=== PATIENT | female | born 1945 | race Caucasian/White ===

== ENCOUNTER 2017-01-31 11:45 | Outpatient (CLI) | payer MEDICARE, BC ==
[~2017-01-31 11:45] MED LIST: SODIUM CHLORIDE FLUSH 0.9% 10 ML SYRINGE IVP ONE
--- NOTE | 2017-02-03 14:00 | Mammography Report ---
DIGITAL SCREENING MAMMOGRAM: 01/31/2017 CLINICAL INDICATION: A 71-year-old, for screening. COMPARISON: 01/2014, 01/2013, 09/2011, 06/2010, 10/2009. TECHNIQUE: Routine CC and MLO projections were obtained of the breasts. FINDINGS: Scattered fibroglandular tissue is present within the breasts. There are no dominant elda s, suspicious microcalcifications, or secondary signs of malignancy. In comparison to the previous st udies, there are no significant changes. ASSESSMENT: NO MAMMOGRAPHIC EVIDENCE OF MALIGNANCY. NO SIGNIFICANT INTERVAL CHANGES. RECOMMENDATION: Screening mammography is recommended annually. BIRADS category 1 - negative. STANDARD QUALIFYING STATEMENTS 1. This examination was reviewed with the aid of Computed-Aided Detection (CAD). 2. A negative or benign imaging report should not delay biopsy if clinically suspicious findings are present. Consider surgical consultation if warranted. More than 5% of cancers are not identified by i maging. 3. Dense breasts may obscure an underlying neoplasm. JOB #: [id number] EXT JOB #:[id number]
== END 2017-01-31 11:46 | disposition home or self-care (01) ==
LOC: DI.S 11:45
PROVIDERS: ATTEND Family Medicine
DX: Z12.31 Encounter for screening mammogram for malignant neoplasm of breast (principal)
CPT/HCPCS: 77067

== ENCOUNTER 2017-07-07 14:26 | Outpatient (CLI) | payer MEDICARE, BC ==
[2017-07-07 18:08] LABS: BILIRUBIN,URINE NEGATIVE (NEGATIVE); GLUCOSE, URINE (UA) NEGATIVE (NEGATIVE); KETONES,URINE (UA) NEGATIVE (NEGATIVE); LEUKOCYTE ESTERASE, URINE NEGATIVE (NEGATIVE); NITRITE,URINE NEGATIVE (NEGATIVE); OCCULT BLOOD,URINE NEGATIVE (NEGATIVE); PROTEIN,URINE NEGATIVE (NEGATIVE); UROBILINOGEN,URINE 0.2 (NORMAL) E.U./dL (NORMAL)
[2017-07-07 18:09] LABS: BASOPHILS # (AUTO) 0.1 10^3/uL (0.0-0.1); BASOPHILS % (AUTO) 0.7 %; EOSINOPHILS % (AUTO) 0.7 %; LYMPHOCYTES # (AUTO) 2.2 10^3/uL (1.5-3.5); LYMPHOCYTES % (AUTO) 30.9 %; MEAN CORPUSCULAR HEMOGLOBIN 30.1 pg (27.0-31.0); MEAN PLATELET VOLUME 8.1 fL (7.9-10.8); MONOCYTES # (AUTO) 0.6 10^3/uL (0.0-1.0); MONOCYTES % (AUTO) 8.5 %; NEUTROPHILS # (AUTO) 4.2 10^3/uL (1.5-6.6); NEUTROPHILS % (AUTO) 59.2 %; PLT - PLATELET COUNT 293 10^3/uL (130-450); RED BLOOD COUNT 4.66 10^6/uL (4.20-5.40); WHITE BLOOD COUNT 7.1 x10^3/uL (4.8-10.8)
[2017-07-07 18:14] LABS: CLARITY,URINE CLEAR (CLEAR)
[2017-07-07 18:46] LABS: CALCIUM 10.1 mg/dL (8.5-10.3); CREATININE 0.5 mg/dL (0.4-1.0)
[2017-07-07 19:21] LABS: HB2 TOTAL 15.3 g/dL; HEMOGLOBIN A1C 0.57 g/dL; HEMOGLOBIN A1C % 5.6 % (4.6-6.2)
== END 2017-07-07 14:27 | disposition home or self-care (01) ==
LOC: RT.S 14:26
PROVIDERS: ATTEND Orthopaedic Surgery
DX: Z01.818 Encounter for other preprocedural examination (principal); N39.0 Urinary tract infection, site not specified; R73.09 Other abnormal glucose
CPT/HCPCS: 36415; 80048; 81001; 81003; 83036; 85025; 87086; 93005

== ENCOUNTER 2017-07-28 16:09 | Outpatient (CLI) | payer MEDICARE, BC ==
--- NOTE | 2017-07-29 13:10 | XRAY Report ---
TWO VIEW RIGHT SHOULDER: 07/28/2017 CLINICAL INDICATION: Pain. FINDINGS: Frontal and scapular Y views of the right shoulder demonstrate mild degenerative changes at the glenohumeral and acromioclavicular joints. There is no evidence of acute fracture or dislocation. No radiopaque foreign body is seen in the soft tissues. IMPRESSION: MILD OSTEOARTHRITIS. TD: 07/29/2017 13:09
== END 2017-07-28 16:10 | disposition home or self-care (01) ==
LOC: DI.S 16:09
PROVIDERS: ATTEND Nurse Practitioner Family
DX: M19.011 Primary osteoarthritis, right shoulder (principal)

== ENCOUNTER 2018-03-24 14:43 | Outpatient (CLI) | payer MEDICARE, BC | END 2018-03-24 14:44 | disposition home or self-care (01) | LOC: LAB.R 14:43 | PROVIDERS: ATTEND Physician Assistant Medical | DX: N39.0 Urinary tract infection, site not specified (principal) | CPT/HCPCS: 87077; 87086; 87181 ==

== ENCOUNTER 2018-04-03 10:00 | Outpatient (CLI) | payer MEDICARE, BC | END 2018-04-03 10:01 | disposition home or self-care (01) | LOC: LAB.R 10:00 | PROVIDERS: ATTEND Internal Medicine | DX: N30.00 Acute cystitis without hematuria (principal) | CPT/HCPCS: 87077; 87086; 87181 ==

== ENCOUNTER 2018-06-26 07:53 | Outpatient (CLI) | payer MEDICARE, BC ==
[2018-06-26 11:15] LABS: ALBUMIN 4.3 g/dL (3.2-5.5); ALBUMIN/GLOBULIN RATIO 1.3 (1.0-2.2); ALKALINE PHOSPHATASE 45 IU/L (42-121); ALT ALANINE AMINOTRANSFERASE 20 IU/L (10-60); AST ASPARTATE AMINOTRANSFERASE 23 IU/L (10-42); BILIRUBIN,TOTAL 0.6 mg/dL (0.2-1.0); BUN - BLOOD UREA NITROGEN 24 mg/dL (6-20); CALCIUM 9.9 mg/dL (8.5-10.3); CARBON DIOXIDE - CO2 28 mmol/L (21-32); CHLORIDE 106 mmol/L (101-111); CHOL/HDL RATIO 3.4 (<4.4); CHOLESTEROL 187 mg/dL; CREATININE 0.6 mg/dL (0.4-1.0); GFR - MDRD 97 (>89); GLUCOSE 108 mg/dL (70-100); HDL CHOLESTEROL 55 mg/dL; LDL CHOLESTEROL,CALCULATED 115 mg/dL; LDL/HDL RATIO 2.1 (<4.4); SODIUM 139 mmol/L (135-145); TOTAL PROTEIN 7.5 g/dL (6.7-8.2); VLDL CHOLESTEROL 17 mg/dL
== END 2018-06-26 07:54 | disposition home or self-care (01) ==
LOC: LAB.F 07:53
PROVIDERS: ATTEND Internal Medicine
DX: E78.5 Hyperlipidemia, unspecified (principal)
CPT/HCPCS: 36415; 80053; 80061; 83721

== ENCOUNTER 2019-08-13 07:20 | Outpatient (CLI) | payer MEDICARE, BC ==
[2019-08-13 10:20] LABS: ALBUMIN 4.4 g/dL (3.2-5.5); ALBUMIN/GLOBULIN RATIO 1.5 (1.0-2.2); ALKALINE PHOSPHATASE 38 IU/L (42-121); ALT ALANINE AMINOTRANSFERASE 18 IU/L (10-60); AST ASPARTATE AMINOTRANSFERASE 22 IU/L (10-42); BILIRUBIN,TOTAL 0.9 mg/dL (0.2-1.0); BUN - BLOOD UREA NITROGEN 20 mg/dL (6-20); CARBON DIOXIDE - CO2 27 mmol/L (21-32); CHLORIDE 106 mmol/L (101-111); CHOL/HDL RATIO 3.9 (<4.4); CHOLESTEROL 201 mg/dL; CREATININE 0.6 mg/dL (0.4-1.0); GFR - MDRD 97 (>89); GLUCOSE 108 mg/dL (70-100); HDL CHOLESTEROL 51 mg/dL; LDL CHOLESTEROL,CALCULATED 135 mg/dL; LDL/HDL RATIO 2.6 (<4.4); SODIUM 141 mmol/L (135-145); TOTAL PROTEIN 7.4 g/dL (6.7-8.2); VLDL CHOLESTEROL 15 mg/dL
== END 2019-08-13 07:21 | disposition home or self-care (01) ==
LOC: LAB.S 07:20
PROVIDERS: ATTEND Internal Medicine
DX: E78.5 Hyperlipidemia, unspecified (principal)
CPT/HCPCS: 36415; 80053; 80061; 83721

== ENCOUNTER 2019-09-18 20:04 | Emergency (ER) | payer MEDICARE, BC ==
--- NOTE | 2019-09-18 20:11 | ED Physician Documentation ---
History of Present Illness - Stated complaint Stated Complaint: RT INDEX FINGER LAC - History obtained from History obtained from: Patient (the patient is 74 y/o f who presents w a cc of right index finger laceration from a chainsaw accident. she denies any other complaints. denies taking anticoagulants. states she is right hand dominant.) Review of Systems Constitutional: reports: Reviewed and negative Eyes: reports: Reviewed and negative Ears: reports: Reviewed and negative Nose: reports: Reviewed and negative Throat: reports: Reviewed and negative Cardiac: reports: Reviewed and negative Respiratory: reports: Reviewed and negative GI: reports: Reviewed and negative : reports: Reviewed and negative Skin: reports: Reviewed and negative Musculoskeletal: reports: Other (right index finger laceration) Neurologic: reports: Reviewed and negative Psychiatric: reports: Reviewed and negative Endocrine: reports: Reviewed and negative Immunocompromised: reports: Reviewed and negative PD PAST MEDICAL HISTORY - Past Medical History Cardiovascular: None Respiratory: None Endocrine/Autoimmune: None GI: GERD, Other : None HEENT: None Psych: None Musculoskeletal: Osteoarthritis, Other Derm: None - Past Surgical History General: Colonoscopy 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 - Present Medications Home Medications: Ambulatory Orders Medication Instructions Recorded Confirmed Ascorbic Acid [Vitamin C] 500 mg PO DAILY 07/11/15 07/11/15 Calcium Carb/Mag Ox/Zinc Sulf [Hm 1 each PO DAILY 07/11/15 07/11/15 Kqsycig-Dphuyyptm-Dwff Cplt] Cholecalciferol (Vitamin D3) 1,000 unit PO DAILY 07/11/15 07/11/15 [Vitamin D] Flaxseed Oil 1,400 mg PO DAILY 07/11/15 07/11/15 Glucosam/Chondr-Msm6/Manganese 1 each PO DAILY 07/11/15 07/11/15 [Glucosamine-Chondroitin Sftgl] Ocuvite 1 cap PO DAILY 07/11/15 07/11/15 Omeprazole [Prilosec] 20 mg PO DAILY 07/11/15 07/24/15 Red Rice Yeast 2,400 mg PO DAILY 07/11/15 07/11/15 Melatonin [Vitajoy] 6 mg PO DAILY 07/21/15 07/21/15 - Allergies Allergies/Adverse Reactions: Allergies Allergy/AdvReac Type Severity Reaction Status Date / Time lisinopril AdvReac Unknown Unverified 09/18/19 20:11 PD ED PE NORMAL - Vitals Vital signs reviewed: Yes - General General: Alert and oriented X 3, No acute distress - HEENT HEENT: PERRL - Neck Neck: Supple, no meningeal sign - Cardiac Cardiac: RRR, No murmur - Respiratory Respiratory: Clear bilaterally - Abdomen Abdomen: Normal bowel sounds, Soft, Non tender, Non distended - Derm Derm: Warm and dry, Other (1 cm laceration to the dorsal aspect of the index finger of the right hand its transverse in orientation. Laceration is between the PIP and DIP joint on the dorsal aspect, compartments are soft sensations intact to light touch full range of motion on passive and active range of motion on flexion extension at the MCP, PIP and DIP joint there is no tendon involvement and no ligamentous involvement no foreign bodies identified wound edges are well approximated. Sensations intact to light touch.) - Extremities Extremities: Other (1 cm laceration to the dorsal aspect of the index finger of the right hand its transverse in orientation. Laceration is between the PIP and DIP joint on the dorsal aspect, compartments are soft sensations intact to light touch full range of motion on passive and active range of motion on flexion extension at the MCP, PIP and DIP joint there is no tendon involvement and no ligamentous involvement no foreign bodies identified wound edges are well approximated. Sensations intact to light touch.) - Neuro Neuro: Alert and oriented X 3 - Psych Psych: Normal mood, Normal affect Results - Vitals Vitals: Vital Signs - 24 hr 09/18/19 09/18/19 20:11 22:17 Temperature 36.5 C 36.7 C Heart Rate 76 90 Respiratory 14 16 Rate Blood Pressure 148/72 H 157/84 H O2 Saturation 96 96 Oxygen O2 Source [] Room air O2 Source Room air Procedures - Laceration (location) Finger right Dorsal Length in cm: 1.5 Wound type: Linear Neurovascular status: Sensory intact, Motor intact, Vascular intact Tendon involvement: Tendon intact Anesthesia: Lidocaine 1%, OTH (digital block) Wound Preparation: Irrigated copiously NS Skin layer closure: Nylon, Size #-0 - enter number (4-0), Sutures - enter # (5) Other: Patient tolerated well, No complications, Neurovascular intact, Dressing applied, Tetanus booster given Complexity: Simple Departure - Departure Disposition: 01 Home, Self Care Clinical Impression: Finger laceration Qualifiers: Encounter type: initial encounter Finger: index finger Damage to nail status: unspecified Foreign body presence: unspecified Laterality: right Qualified Code(s): S61.210A - Laceration without foreign body of right index finger without damage to nail, initial encounter Condition: Stable Instructions: ED Laceration All Follow-Up: Bunny Bob MD [Primary Care Provider] - Within 1 week Comments: follow up in 7-10 days for suture removal. Discharge Date/Time: 09/18/19 22:25
[2019-09-18] MEDS ORDERED: LIDOCAINE 1% 2 ML VIAL SUBQ STA (20:34)
[2019-09-18] MEDS ORDERED: TETANUS/DIPHTHERIA/PERTUSSIS 0.5 ML SYRINGE IM ONE (20:35)
--- NOTE | 2019-09-18 21:57 | XRAY Report ---
Reason: finger lac Procedure Date: 09/18/2019 Accession Number: [id number] / [id number] Procedure: XR - Hand 3 View RT CPT Code: Final Report FULL RESULT: EXAM: RIGHT HAND RADIOGRAPHY EXAM DATE: 09/18/2019 09:22 PM. CLINICAL HISTORY: Finger lac. COMPARISON: None TECHNIQUE: 3 views. FINDINGS: Bones: No acute fractures or suspicious bone lesions. Joints: No subluxations. Soft Tissues: Unremarkable. IMPRESSION: No acute radiographic abnormalities. RADIA
[2019-09-18 22:18] VITALS: BP 157/84
== END 2019-09-18 22:25 | disposition home or self-care (01) ==
LOC: ED 20:04
DX: S61.210A Laceration without foreign body of right index finger without damage to nail, initial encounter (principal); W29.3XXA Contact with powered garden and outdoor hand tools and machinery, initial encounter
CPT/HCPCS: 12001; 90471; 99283

== ENCOUNTER 2019-12-01 09:51 | Outpatient (CLI) | payer MEDICARE, BC ==
--- NOTE | 2019-12-02 11:06 | Mammography Report ---
BILATERAL DIGITAL SCREENING MAMMOGRAM 3D/2D: 12/01/2019 CLINICAL: Routine screening. Comparison is made to exams dated: 01/31/2017 mammogram, 01/17/2014 mammogram, and 02/04/2013 mammogram - [facility]. The tissue of both breasts is heterogeneously dense. This may lower the sensitivity of mammography. No significant masses, calcifications, or other findings are seen in either breast. There has been no significant interval change. IMPRESSION: NEGATIVE There is no mammographic evidence of malignancy. A 1 year screening mammogram is recommended. This exam was interpreted at Station ID: [id number]. NOTE: For mammograms, a report in lay terms will be sent to the patient. Approximately 15% of breast malignancies will not be visualized mammographically. In the management of a palpable breast mass, a negative mammogram must not discourage biopsy of a clinically suspicious lesion. Electronically Signed By: Phoebe diaz/emmanuelrad:12/02/2019 08:53:29 ACR BI-RADS Category 1: Negative 3341F PARENCHYMAL PATTERN: (D) - The breast(s) demonstrate(s) heterogeneously dense fibroglandular torito de guzman. BI-RADS CATEGORY: (1) - 1 RECOMMENDATION: (ANNUAL) - Recommend routine annual screening mammography. [id number] 1 year screening LATERALITY: (B)
== END 2019-12-01 09:52 | disposition home or self-care (01) ==
LOC: DI 09:51
DX: Z12.31 Encounter for screening mammogram for malignant neoplasm of breast (principal)
CPT/HCPCS: 77063; 77067

== ENCOUNTER 2020-01-24 15:02 | Outpatient (CLI) | payer MEDICARE, BC ==
--- NOTE | 2020-01-24 16:26 | XRAY Report ---
PROCEDURE: Foot 3 View LT INDICATIONS: PAIN + EDEMA MED,LT FT X 1 MONTH TECHNIQUE: 3 views of the foot were acquired. COMPARISON: None FINDINGS: Bones: No fractures or dislocations. No suspicious bony lesions. Scattered moderate IP degenerativ e changes are present. No erosions. Soft tissues: No tibiotalar joint effusion. Achilles tendon appears normal. IMPRESSION: Scattered IP degenerative changes. Reviewed by: Candi Grey MD on 01/24/2020 4:24 PM PDT Approved by: Candi Grey MD on 01/24/2020 4:24 PM PDT Station ID: [id number]
== END 2020-01-24 15:03 | disposition home or self-care (01) ==
LOC: DI 15:02
PROVIDERS: ATTEND Podiatrist
DX: M19.072 Primary osteoarthritis, left ankle and foot (principal)

== ENCOUNTER 2020-01-31 07:54 | Outpatient (CLI) | payer MEDICARE, BC ==
--- NOTE | 2020-01-31 10:15 | MRI Report ---
PROCEDURE: Foot LT W/O INDICATIONS: PAINFUL LT POSTERIOR TIBIALIS TENDON TECHNIQUE: Noncontrast coronal and sagittal T1 spin echo and STIR; axial T1 spin echo and T2 fast spin echo with fat saturation through the left foot. COMPARISON: None. FINDINGS: Image quality: Excellent. Bones: No fracture. No focal intraosseous lesion identified. There is plantar calcaneal spurring whi ch is prominent. Osteoarthritis at the tarsometatarsal joints, with associated subchondral marrow deanna ma and cystic change. Small tibiotalar joint effusion. Soft tissues: Subcutaneous cellulitis overlying the medial malleolus. Severe medial band plantar fas ciitis, with marked thickening and intrasubstance signal changes of the plantar fascia. Mild posterior tibialis tenosynovitis. 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 There is also trace peroneal tenosynovitis. Peroneal tendons appear grossly intact. IMPRESSION: Severe medial band plantar fasciitis Diffuse tarsometatarsal joint degeneration. Recommend clinical correlation to exclude the possibility of early neuropathic arthritis. Mild posterior tibialis tenosynovitis, and minimal distal tendinopathy. Trace peroneal tenosynovitis Reviewed by: Henry Ignacio MD on 01/31/2020 10:13 AM PDT Approved by: Henry Ignacio MD on 01/31/2020 10:13 AM PDT Station ID: [id number]
== END 2020-01-31 07:55 | disposition home or self-care (01) ==
LOC: DI 07:54
PROVIDERS: ATTEND Podiatrist
DX: M72.2 Plantar fascial fibromatosis (principal); M19.072 Primary osteoarthritis, left ankle and foot; M65.872 Other synovitis and tenosynovitis, left ankle and foot

== ENCOUNTER 2020-07-03 08:00 | Outpatient (CLI) | payer MEDICARE, BC | END 2020-07-03 23:59 | disposition home or self-care (01) | LOC: LAB.S 08:00 | PROVIDERS: ATTEND Physician Assistant Medical | DX: N39.0 Urinary tract infection, site not specified (principal); R30.0 Dysuria | CPT/HCPCS: 87086; 87181 ==

== ENCOUNTER 2020-07-12 08:00 | Outpatient (CLI) | payer MEDICARE, BC | END 2020-07-12 23:59 | disposition home or self-care (01) | LOC: LAB.R 08:00 | PROVIDERS: ATTEND Physician Assistant Medical | DX: R30.0 Dysuria (principal) | CPT/HCPCS: 87086 ==

== ENCOUNTER 2020-07-22 08:00 | Outpatient (CLI) | payer MEDICARE, BC | END 2020-07-22 23:59 | disposition home or self-care (01) | LOC: LAB.S 08:00 | PROVIDERS: ATTEND Physician Assistant | DX: R30.0 Dysuria (principal) | CPT/HCPCS: 87086 ==

== ENCOUNTER 2020-08-29 08:00 | Outpatient (CLI) | payer MEDICARE, BC ==
[2020-08-29 15:11] LABS: BASOPHILS % (AUTO) 0.8 %; EOSINOPHILS % (AUTO) 1.1 %; HCT - HEMATOCRIT 42.6 % (37.0-47.0); HGB - HEMOGLOBIN 13.2 g/dL (12.0-16.0); LYMPHOCYTES # (AUTO) 1.2 10^3/uL (1.5-3.5); LYMPHOCYTES % (AUTO) 33.1 %; MEAN CORPUSCULAR HEMOGLOBIN 29.5 pg (27.0-31.0); MEAN CORPUSCULAR VOLUME 95.3 fL (81.0-99.0); MEAN PLATELET VOLUME 10.2 fL (7.9-10.8); MONOCYTES # (AUTO) 0.4 10^3/uL (0.0-1.0); MONOCYTES % (AUTO) 11.2 %; NEUTROPHILS % (AUTO) 53.5 %; PLT - PLATELET COUNT 272 10^3/uL (130-450); RED BLOOD COUNT 4.47 10^6/uL (4.20-5.40); RED CELL DISTRIBUTION WIDTH 14.5 % (12.0-15.0); WHITE BLOOD COUNT 3.8 x10^3/uL (4.8-10.8)
[2020-08-29 15:48] LABS: ALBUMIN 4.3 g/dL (3.2-5.5); ALBUMIN/GLOBULIN RATIO 1.5 (1.0-2.2); ALKALINE PHOSPHATASE 42 IU/L (42-121); ALT ALANINE AMINOTRANSFERASE 19 IU/L (10-60); AST ASPARTATE AMINOTRANSFERASE 23 IU/L (10-42); BILIRUBIN,TOTAL 0.6 mg/dL (0.2-1.0); BUN - BLOOD UREA NITROGEN 18 mg/dL (6-20); CALCIUM 10.2 mg/dL (8.5-10.3); CARBON DIOXIDE - CO2 27 mmol/L (21-32); CHLORIDE 106 mmol/L (101-111); CHOL/HDL RATIO 3.4 (<4.4); CHOLESTEROL 189 mg/dL; CREATININE 0.5 mg/dL (0.4-1.0); GFR - MDRD 120 (>89); GLUCOSE 111 mg/dL (70-100); HDL CHOLESTEROL 56 mg/dL; LDL CHOLESTEROL,CALCULATED 118 mg/dL; LDL/HDL RATIO 2.1 (<4.4); POTASSIUM 3.7 mmol/L (3.5-5.0); SODIUM 139 mmol/L (135-145); TOTAL PROTEIN 7.1 g/dL (6.7-8.2); TRIGLYCERIDES 74 mg/dL; VLDL CHOLESTEROL 15 mg/dL
== END 2020-08-29 08:01 | disposition home or self-care (01) ==
LOC: LAB.S 08:00
PROVIDERS: ATTEND Internal Medicine
DX: I10 Essential (primary) hypertension (principal)
CPT/HCPCS: 36415; 80053; 80061; 83721; 85025

== ENCOUNTER 2020-11-18 08:00 | Outpatient (CLI) | payer MEDICARE, BC ==
--- NOTE | 2020-11-18 13:09 | XRAY Report ---
PROCEDURE: Shoulder 3 View LT INDICATIONS: CONTUSION OF LEFT SHOULDER TECHNIQUE: 3 views of the shoulder were acquired. COMPARISON: None. FINDINGS: Bones: No acute fractures or dislocations. There is a small chronic appearing bone fragment adjacen t to the glenoid. No suspicious bony lesions. Visualized ribs appear intact. Degenerative changes are seen, with mild subacromial spurring. Soft tissues: No suspicious soft tissue calcifications. The visualized lung demonstrates a normal a ppearance. IMPRESSION: Degenerative changes are seen by plain film, without an acute abnormality. Chronic appearing bone fragment seen adjacent to the glenoid, which is likely related to a remote inj ury. If it would be helpful for clinical management decision making, please consider a dedicated, schedule d shoulder MRI for further evaluation (assuming that there is no contraindication). Reviewed by: Unruly Childers MD on 11/18/2020 12:08 PM JUAREZ Approved by: Unruly Childers MD on 11/18/2020 12:08 PM JUAREZ Station ID: [id number]
== END 2020-11-18 23:59 | disposition home or self-care (01) ==
LOC: DI.S 08:00
PROVIDERS: ATTEND Physician Assistant Medical
DX: M19.012 Primary osteoarthritis, left shoulder (principal)

== ENCOUNTER 2020-12-25 13:31 | Outpatient (CLI) | payer MEDICARE, BC ==
--- NOTE | 2020-12-26 13:46 | Mammography Report ---
BILATERAL DIGITAL SCREENING MAMMOGRAM 3D/2D: 12/25/2020 CLINICAL: Routine screening. Comparison is made to exams dated: 12/01/2019 mammogram, 01/31/2017 mammogram, 01/17/2014 mammogram, an d 02/04/2013 mammogram - [facility]. The tissue of both breasts is heterogeneously dense. This may lower the sensitivity of mammography. No significant masses, calcifications, or other findings are seen in either breast. There has been no significant interval change. IMPRESSION: NEGATIVE There is no mammographic evidence of malignancy. A 1 year screening mammogram is recommended. This exam was interpreted at Station ID: [id number]. NOTE: For mammograms, a report in lay terms will be sent to the patient. Approximately 15% of breast malignancies will not be visualized mammographically. In the management of a palpable breast mass, a negative mammogram must not discourage biopsy of a clinically suspicious lesion. Electronically Signed By: Jhon Muir M.D. slc/penrad:12/25/2020 14:23:08 ACR BI-RADS Category 1: Negative 3341F PARENCHYMAL PATTERN: (D) - The breast(s) demonstrate(s) heterogeneously dense fibroglandular torito de guzman. BI-RADS CATEGORY: (1) - 1 RECOMMENDATION: (ANNUAL) - Recommend routine annual screening mammography. [id number] 1 year screening LATERALITY: (B)
== END 2020-12-25 13:32 | disposition home or self-care (01) ==
LOC: DI.S 13:31
DX: Z12.31 Encounter for screening mammogram for malignant neoplasm of breast (principal)

== ENCOUNTER 2021-03-07 08:55 | Outpatient (CLI) | payer MEDICARE, BC ==
[2021-03-07 15:11] LABS: BASOPHILS % (AUTO) 0.2 %; EOSINOPHILS % (AUTO) 0.4 %; HCT - HEMATOCRIT 42.6 % (37.0-47.0); HGB - HEMOGLOBIN 13.3 g/dL (12.0-16.0); LYMPHOCYTES # (AUTO) 1.5 10^3/uL (1.5-3.5); LYMPHOCYTES % (AUTO) 31.4 %; MEAN CORPUSCULAR HEMOGLOBIN 29.4 pg (27.0-31.0); MEAN CORPUSCULAR HGB CONC 31.2 g/dL (32.0-36.0); MEAN CORPUSCULAR VOLUME 94.2 fL (81.0-99.0); MEAN PLATELET VOLUME 9.7 fL (7.9-10.8); MONOCYTES # (AUTO) 0.6 10^3/uL (0.0-1.0); MONOCYTES % (AUTO) 12.1 %; NEUTROPHILS # (AUTO) 2.7 10^3/uL (1.5-6.6); NEUTROPHILS % (AUTO) 55.3 %; PLT - PLATELET COUNT 339 10^3/uL (130-450); RED BLOOD COUNT 4.52 10^6/uL (4.20-5.40); RED CELL DISTRIBUTION WIDTH 14.5 % (12.0-15.0); WHITE BLOOD COUNT 4.9 x10^3/uL (4.8-10.8)
[2021-03-07 15:26] LABS: ALBUMIN 4.3 g/dL (3.2-5.5); ALBUMIN/GLOBULIN RATIO 1.4 (1.0-2.2); ALKALINE PHOSPHATASE 42 IU/L (42-121); ALT ALANINE AMINOTRANSFERASE 18 IU/L (10-60); AST ASPARTATE AMINOTRANSFERASE 21 IU/L (10-42); BILIRUBIN,TOTAL 0.8 mg/dL (0.2-1.0); BUN - BLOOD UREA NITROGEN 23 mg/dL (6-20); CALCIUM 9.8 mg/dL (8.5-10.3); CARBON DIOXIDE - CO2 27 mmol/L (21-32); CHLORIDE 103 mmol/L (101-111); CHOL/HDL RATIO 3.8 (<4.4); CHOLESTEROL 218 mg/dL; CREATININE 0.5 mg/dL (0.4-1.0); GFR - MDRD 120 (>89); GLUCOSE 105 mg/dL (70-100); HDL CHOLESTEROL 57 mg/dL; LDL CHOLESTEROL,CALCULATED 140 mg/dL; LDL/HDL RATIO 2.5 (<4.4); POTASSIUM 3.9 mmol/L (3.5-5.0); SODIUM 138 mmol/L (135-145); TOTAL PROTEIN 7.4 g/dL (6.7-8.2); TRIGLYCERIDES 103 mg/dL; VLDL CHOLESTEROL 21 mg/dL
== END 2021-03-07 08:56 | disposition home or self-care (01) ==
LOC: LAB.S 08:55
PROVIDERS: ATTEND Internal Medicine
DX: I10 Essential (primary) hypertension (principal)
CPT/HCPCS: 36415; 80053; 80061; 83721; 85025

== ENCOUNTER 2022-03-01 09:06 | Outpatient (CLI) | payer MEDICARE, BC | END 2022-03-01 23:59 | disposition home or self-care (01) | LOC: LAB.S 09:06 | PROVIDERS: ATTEND Physician Assistant | DX: R30.0 Dysuria (principal) | CPT/HCPCS: 87086; 87181 ==

== ENCOUNTER 2022-03-05 08:00 | Outpatient (CLI) | payer MEDICARE, BC ==
[2022-03-05 18:18] LABS: BACTERIAL VAGINOSIS DNA NEGATIVE (NEGATIVE); CANDIDA GLABRATA DNA NEGATIVE (NEGATIVE); CANDIDA GROUP DNA NEGATIVE (NEGATIVE); CANDIDA KRUSEI DNA NEGATIVE (NEGATIVE); TRICHOMONAS VAGINALIS DNA NEGATIVE (NEGATIVE)
== END 2022-03-05 23:59 | disposition home or self-care (01) ==
LOC: LAB.S 08:00
PROVIDERS: ATTEND Physician Assistant Medical
DX: N76.0 Acute vaginitis (principal); R30.0 Dysuria
CPT/HCPCS: 81514; 87086

== ENCOUNTER 2022-03-11 08:00 | Outpatient (CLI) | payer MEDICARE, BC | END 2022-03-11 23:59 | disposition home or self-care (01) | LOC: LAB.S 08:00 | PROVIDERS: ATTEND Physician Assistant | DX: R30.0 Dysuria (principal) | CPT/HCPCS: 87086; 87181 ==

== ENCOUNTER 2022-04-26 07:25 | Outpatient (CLI) | payer MEDICARE, BC ==
[2022-04-26 14:55] LABS: BASOPHILS % (AUTO) 0.6 %; EOSINOPHILS % (AUTO) 0.2 %; HCT - HEMATOCRIT 44.4 % (37.0-47.0); HGB - HEMOGLOBIN 13.9 g/dL (12.0-16.0); LYMPHOCYTES # (AUTO) 1.4 10^3/uL (1.5-3.5); LYMPHOCYTES % (AUTO) 26.1 %; MEAN CORPUSCULAR HEMOGLOBIN 29.6 pg (27.0-31.0); MEAN CORPUSCULAR HGB CONC 31.3 g/dL (32.0-36.0); MEAN CORPUSCULAR VOLUME 94.5 fL (81.0-99.0); MEAN PLATELET VOLUME 9.9 fL (7.9-10.8); MONOCYTES # (AUTO) 0.9 10^3/uL (0.0-1.0); MONOCYTES % (AUTO) 16.7 %; NEUTROPHILS # (AUTO) 2.9 10^3/uL (1.5-6.6); NEUTROPHILS % (AUTO) 54.7 %; PLT - PLATELET COUNT 324 10^3/uL (130-450); RED CELL DISTRIBUTION WIDTH 14.6 % (12.0-15.0); WHITE BLOOD COUNT 5.2 x10^3/uL (4.8-10.8)
[2022-04-26 15:32] LABS: ALBUMIN 4.6 g/dL (3.2-5.5); ALBUMIN/GLOBULIN RATIO 1.4 (1.0-2.2); ALKALINE PHOSPHATASE 50 IU/L (42-121); ALT ALANINE AMINOTRANSFERASE 16 IU/L (10-60); AST ASPARTATE AMINOTRANSFERASE 21 IU/L (10-42); BILIRUBIN,TOTAL 0.9 mg/dL (0.2-1.0); BUN - BLOOD UREA NITROGEN 14 mg/dL (6-20); CALCIUM 10.3 mg/dL (8.5-10.3); CARBON DIOXIDE - CO2 27 mmol/L (21-32); CHLORIDE 100 mmol/L (101-111); CHOL/HDL RATIO 3.9 (<4.4); CHOLESTEROL 214 mg/dL; CREATININE 0.4 mg/dL (0.4-1.0); GFR - MDRD 154 (>89); GLUCOSE 122 mg/dL (70-100); HDL CHOLESTEROL 55 mg/dL; LDL CHOLESTEROL,CALCULATED 142 mg/dL; LDL/HDL RATIO 2.6 (<4.4); SODIUM 138 mmol/L (135-145); TRIGLYCERIDES 85 mg/dL; VLDL CHOLESTEROL 17 mg/dL
[2022-04-27 04:09] LABS: HBsAG SCREEN Negative (Negative); HEPATITIS B SURFACE AB QUANT <3.1 mIU/mL (Immunity>9.9)
[2022-04-27 05:10] LABS: HCV AB <0.1 s/co ratio (0.0-0.9)
== END 2022-04-26 07:26 | disposition home or self-care (01) ==
LOC: LAB.S 07:25
DX: L30.9 Dermatitis, unspecified (principal)
CPT/HCPCS: 36415; 80053; 80061; 81599; 83721; 85025; 86317; 86480; 86704; 86803; 87340

== ENCOUNTER 2022-05-31 10:50 | Outpatient (CLI) | payer MEDICARE, BC ==
--- NOTE | 2022-05-31 11:20 | XRAY Report ---
PROCEDURE: Foot 2 View LT INDICATIONS: FOOT PAIN LEFT TECHNIQUE: 2. views of the foot were acquired. COMPARISON: Left foot radiographs 01/24/2020 and MRI 01/31/2020 FINDINGS: Bones: No fractures or dislocations. No suspicious bony lesions. Prominent dorsal spurring is seen at the tarsometatarsal joints on lateral view, most likely involving the second tarsometatarsal joint . A prominent plantar calcaneal enthesophyte is present. Scattered degenerative changes are seen at t he interphalangeal joints of the toes. Soft tissues: Diffuse soft tissue edema is seen at the dorsum of the foot. IMPRESSION: 1.Degenerative changes are most prominent in the tarsometatarsal joints. 2.Nonspecific soft tissue edema throughout the dorsum of the foot. Reviewed by: Adelso Recio MD on 05/31/2022 11:18 AM PST Approved by: Adelso Recio MD on 05/31/2022 11:18 AM PST Station ID: [id number]
[2022-05-31 14:17] LABS: BASOPHILS % (AUTO) 0.4 %; EOSINOPHILS % (AUTO) 0.2 %; HCT - HEMATOCRIT 44.4 % (37.0-47.0); HGB - HEMOGLOBIN 13.8 g/dL (12.0-16.0); LYMPHOCYTES # (AUTO) 1.5 10^3/uL (1.5-3.5); LYMPHOCYTES % (AUTO) 27.6 %; MEAN CORPUSCULAR HEMOGLOBIN 29.2 pg (27.0-31.0); MEAN CORPUSCULAR HGB CONC 31.1 g/dL (32.0-36.0); MEAN CORPUSCULAR VOLUME 94.1 fL (81.0-99.0); MEAN PLATELET VOLUME 10.1 fL (7.9-10.8); MONOCYTES # (AUTO) 0.9 10^3/uL (0.0-1.0); MONOCYTES % (AUTO) 16.8 %; NEUTROPHILS # (AUTO) 2.7 10^3/uL (1.5-6.6); NEUTROPHILS % (AUTO) 50.7 %; PLT - PLATELET COUNT 357 10^3/uL (130-450); RED BLOOD COUNT 4.72 10^6/uL (4.20-5.40); RED CELL DISTRIBUTION WIDTH 14.4 % (12.0-15.0); WHITE BLOOD COUNT 5.4 x10^3/uL (4.8-10.8)
== END 2022-05-31 10:51 | disposition home or self-care (01) ==
LOC: DI.S 10:50
PROVIDERS: ATTEND Registered Nurse
DX: M19.072 Primary osteoarthritis, left ankle and foot (principal); M79.89 Other specified soft tissue disorders; L03.116 Cellulitis of left lower limb; M79.672 Pain in left foot
CPT/HCPCS: 36415; 84550; 85025; 87040

== ENCOUNTER 2022-06-06 06:45 | Outpatient (CLI) | payer MEDICARE, BC ==
--- NOTE | 2022-06-06 07:31 | Ultrasound Report ---
PROCEDURE: Duplex Ext Veins Left INDICATIONS: LEFT FOOT PAIN TECHNIQUE: Real-time imaging, as well as color and pulse Doppler interrogation, were performed of the lower extr emity deep veins from the inguinal ligament to the popliteal fossa. COMPARISON: None. FINDINGS: The deep veins are normally compressible, and free of intraluminal thrombus. Color and pu lse Doppler demonstrate normal phasic intraluminal flow. There is normal augmentation response to di stal compression maneuver. IMPRESSION: Negative for deep venous thrombosis of the left lower extremity. Preliminary results reported to the ordering clinician at 0718 hours. Reviewed by: Jenaor Pena MD on 06/06/2022 7:30 AM PST Approved by: Jenaro Pena MD on 06/06/2022 7:30 AM PST Station ID: [id number]
== END 2022-06-06 06:46 | disposition home or self-care (01) ==
LOC: DI 06:45
PROVIDERS: ATTEND Registered Nurse
DX: M79.672 Pain in left foot (principal)

== ENCOUNTER 2022-06-06 12:51 | Outpatient (CLI) | payer MEDICARE, BC ==
[2022-06-06 15:08] LABS: PT - PROTHROMBIN TIME 11.7 secs (9.9-12.6)
[2022-06-06 15:12] LABS: BILIRUBIN,URINE NEGATIVE (NEGATIVE); GLUCOSE, URINE (UA) NEGATIVE (NEGATIVE); KETONES,URINE (UA) NEGATIVE (NEGATIVE); LEUKOCYTE ESTERASE, URINE NEGATIVE (NEGATIVE); NITRITE,URINE NEGATIVE (NEGATIVE); OCCULT BLOOD,URINE NEGATIVE (NEGATIVE); PROTEIN,URINE NEGATIVE (NEGATIVE); UROBILINOGEN,URINE 0.2 (NORMAL) E.U./dL (NORMAL)
[2022-06-06 15:14] LABS: CLARITY,URINE CLEAR (CLEAR)
[2022-06-06 15:55] LABS: ALBUMIN 4.4 g/dL (3.2-5.5); CALCIUM 10.2 mg/dL (8.5-10.3); CREATININE 0.6 mg/dL (0.4-1.0); POTASSIUM 3.8 mmol/L (3.5-5.0)
== END 2022-06-06 12:52 | disposition home or self-care (01) ==
LOC: LAB.S 12:51
PROVIDERS: ATTEND Registered Nurse
DX: R60.0 Localized edema (principal); M79.672 Pain in left foot
CPT/HCPCS: 36415; 80048; 81001; 81003; 82040; 85610; 87086

== ENCOUNTER 2022-09-25 07:00 | Outpatient (CLI) | payer MEDICARE, BC ==
--- NOTE | 2022-09-25 15:07 | XRAY Report ---
PROCEDURE: Chest 2 View X-Ray INDICATIONS: LEFT SIDED RIB PAIN TECHNIQUE: 2 views of the chest were acquired. COMPARISON: None. FINDINGS: Surgical changes and devices: None. Lungs and pleura: No pleural effusions or pneumothorax. Lungs are clear. Mediastinum: Mediastinal contours appear normal. Heart size is normal. Bones and chest wall: No suspicious bony lesions. Overlying soft tissues appear unremarkable. IMPRESSION: No radiopaque abnormality. Reviewed by: Niko Bishop on 09/25/2022 3:06 PM PDT Approved by: Niko Bishop on 09/25/2022 3:06 PM PDT Station ID: [id number]
== END 2022-09-25 23:59 | disposition home or self-care (01) ==
LOC: DI.S 07:00
PROVIDERS: ATTEND Nurse Practitioner
DX: R07.81 Pleurodynia (principal)

== ENCOUNTER 2023-01-24 08:00 | Outpatient (CLI) | payer MEDICARE, BC | END 2023-01-24 23:59 | disposition home or self-care (01) | LOC: LAB.S 08:00 | PROVIDERS: ATTEND Physician Assistant | DX: R30.0 Dysuria (principal) | CPT/HCPCS: 87086; 87181 ==

== ENCOUNTER 2023-05-08 07:45 | Day surgery (SDC) | payer MEDICARE, BC ==
[2023-05-08] MEDS ORDERED: TIMOLOL 0.5% OPHTH DROPS RIGHTEYE ONE (07:46)
[2023-05-08] MEDS ORDERED: EPINEPHrine 1 MG/ML AMP IV ONE (07:46)
[2023-05-08] MEDS ORDERED: TRIAMCIN/MOXIFLOX OPHTHALMIC 0.6 ML VIAL IO ONE (07:46)
[2023-05-08] MEDS ORDERED: BRIMONIDINE 0.2% OPHTH DROPS 5 ML RIGHTEYE ONE (07:46)
[2023-05-08] MEDS ORDERED: LACTATED RINGERS 1,000 ML IV ONE (08:08)
[2023-05-08] MEDS ORDERED: KETOROLAC 0.45% OPHTH DROPS RIGHTEYE ONE (08:15)
[2023-05-08] MEDS ORDERED: PROPARACAINE 0.5% OPHTH DROPS 15 ML RIGHTEYE ONE (08:15)
[2023-05-08] MEDS ORDERED: CYCLOPENTOLATE 1% OPHTH DROPS 2 ML RIGHTEYE ONE (08:16)
[2023-05-08] MEDS ORDERED: PHENYLEPHRINE 2.5% OPHTH 2 ML DROPS RIGHTEYE ONE (08:16)
[2023-05-08 08:23] VITALS: BP 134/70; O2SAT 98
--- NOTE | 2023-05-08 10:37 | CONSULTATION NOTE ---
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 Explained to patient by Dr. Hawkins and myself that she will need to be cancelled until she cardiac eval complete for this new finding on EKG. She was agreeable and knows to follow up with her PCP.
== END 2023-05-08 07:46 | disposition home or self-care (01) ==
LOC: SDS 07:45
PROVIDERS: ATTEND Ophthalmology
DX: R94.31 Abnormal electrocardiogram [ECG] [EKG] (principal); I44.7 Left bundle-branch block, unspecified; Z53.09 Procedure and treatment not carried out because of other contraindication
CPT/HCPCS: 93005; A9270; J7120

== ENCOUNTER 2023-07-09 07:00 | Outpatient (CLI) | payer MEDICARE, BC ==
[2023-07-09 19:58] LABS: BASOPHILS % (AUTO) 0.2 %; EOSINOPHILS % (AUTO) 0.3 %; HCT - HEMATOCRIT 37.2 % (37.0-47.0); HGB - HEMOGLOBIN 11.9 g/dL (12.0-16.0); LYMPHOCYTES % (AUTO) 4.7 %; MEAN CORPUSCULAR HEMOGLOBIN 28.7 pg (27.0-31.0); MEAN CORPUSCULAR VOLUME 89.9 fL (81.0-99.0); MEAN PLATELET VOLUME 10.7 fL (7.9-10.8); MONOCYTES % (AUTO) 34.8 %; NEUTROPHILS % (AUTO) 58.7 %; PLT - PLATELET COUNT 231 10^3/uL (130-450); RED BLOOD COUNT 4.14 10^6/uL (4.20-5.40); RED CELL DISTRIBUTION WIDTH 14.4 % (12.0-15.0); WHITE BLOOD COUNT 14.4 x10^3/uL (4.8-10.8)
[2023-07-09 20:04] LABS: ABNORMAL LYMPHS % (MANUAL) 0 %
[2023-07-09 20:18] LABS: ALBUMIN 3.8 g/dL (3.2-5.5); ALBUMIN/GLOBULIN RATIO 1.2 (1.0-2.2); BILIRUBIN,TOTAL 0.8 mg/dL (0.2-1.0); CALCIUM 10.1 mg/dL (8.5-10.3); CREATININE 0.6 mg/dL (0.6-1.3); POTASSIUM 3.5 mmol/L (3.5-4.5)
[2023-07-09 21:19] LABS: BAND NEUTROPHILS % (MANUAL) 1 %; LYMPHOCYTES # (MANUAL) 0.9 10^3/uL (1.5-3.5); LYMPHOCYTES % (MANUAL) 1 %; MONOCYTES # (MANUAL) 4.5 10^3/uL (0.0-1.0); NEUTROPHILS # (MANUAL) 9.1 10^3/uL (1.5-6.6); REACTIVE LYMPHS % (MANUAL) 5 %
[2023-07-09 21:20] LABS: DIFFERENTIAL COMMENT MANUAL DIFFERENTIAL; PLATELET ESTIMATE, MANUAL NORMAL (130-450,000) (NORMAL); PLATELET MORPHOLOGY NORMAL APPEARANCE (NORMAL); RBC MORPHOLOGY (MULTIPLE) NORMAL APPEARANCE (NORMAL)
== END 2023-07-09 23:59 | disposition home or self-care (01) ==
LOC: LAB.S 07:00
PROVIDERS: ATTEND Registered Nurse
DX: R30.0 Dysuria (principal); R50.9 Fever, unspecified; R00.0 Tachycardia, unspecified
CPT/HCPCS: 36415; 80053; 85025; 86140

== ENCOUNTER 2023-07-18 08:19 | Outpatient (CLI) | payer MEDICARE, BC ==
[2023-07-18 15:15] LABS: BASOPHILS % (AUTO) 0.2 %; EOSINOPHILS % (AUTO) 0.4 %; HCT - HEMATOCRIT 39.2 % (37.0-47.0); HGB - HEMOGLOBIN 11.9 g/dL (12.0-16.0); LYMPHOCYTES # (AUTO) 1.6 10^3/uL (1.5-3.5); MEAN CORPUSCULAR HEMOGLOBIN 27.9 pg (27.0-31.0); MEAN CORPUSCULAR HGB CONC 30.4 g/dL (32.0-36.0); MEAN PLATELET VOLUME 10.1 fL (7.9-10.8); MONOCYTES % (AUTO) 18.6 %; NEUTROPHILS # (AUTO) 2.8 10^3/uL (1.5-6.6); NEUTROPHILS % (AUTO) 50.5 %; PLT - PLATELET COUNT 406 10^3/uL (130-450); RED BLOOD COUNT 4.26 10^6/uL (4.20-5.40); RED CELL DISTRIBUTION WIDTH 14.9 % (12.0-15.0); WHITE BLOOD COUNT 5.6 x10^3/uL (4.8-10.8)
[2023-07-18 16:24] LABS: ALBUMIN/GLOBULIN RATIO 1.3 (1.0-2.2); BILIRUBIN,TOTAL 0.5 mg/dL (0.2-1.0); CREATININE 0.7 mg/dL (0.6-1.3); POTASSIUM 4.2 mmol/L (3.5-4.5)
== END 2023-07-18 08:20 | disposition home or self-care (01) ==
LOC: LAB.S 08:19
PROVIDERS: ATTEND Registered Nurse
DX: E87.1 Hypo-osmolality and hyponatremia (principal); D64.9 Anemia, unspecified; R50.9 Fever, unspecified; R00.0 Tachycardia, unspecified
CPT/HCPCS: 36415; 80053; 85025

== ENCOUNTER 2023-08-07 06:14 | Day surgery (SDC) | payer MEDICARE, BC ==
[2023-08-07] MEDS: PROPARACAINE 0.5% OPHTH DROPS 15 ML ONE (06:35)
[2023-08-07] MEDS: PHENYLEPHRINE 2.5% OPHTH 2 ML DROPS RIGHTEYE ONE (06:35)
[2023-08-07] MEDS: CYCLOPENTOLATE 1% OPHTH DROPS 2 ML RIGHTEYE ONE (06:35)
[2023-08-07] MEDS: KETOROLAC 0.45% OPHTH DROPS ONE (06:35)
[2023-08-07] MEDS: LACTATED RINGERS 1,000 ML IV ONE (06:45)
[2023-08-07] MEDS ORDERED: EPINEPHrine 1 MG/ML AMP ONE ×2 (07:32→07:53)
[2023-08-07] MEDS ORDERED: TRIAMCIN/MOXIFLOX OPHTHALMIC 0.6 ML VIAL IO ONE (07:32)
[2023-08-07] MEDS ORDERED: TIMOLOL 0.5% OPHTH DROPS ONE (07:32)
[2023-08-07] MEDS ORDERED: BRIMONIDINE 0.2% OPHTH DROPS 5 ML ONE (07:32)
[2023-08-07] MEDS ORDERED: BSS/LIDOCAINE/EPINEPHRINE 1 ML VIAL ONE (07:33)
--- NOTE | 2023-08-07 07:53 | ANESTHESIA ---
Pre-Anesthesia VS, & Labs - Diagnosis right cataract - Procedure right cataract extraction with IOL Vital Signs: Temp Pulse Resp BP Pulse Ox O2 Flow Rate 36.1 C L 107 H 16 146/67 H 100 08/07/23 06:34 08/07/23 06:34 08/07/23 06:34 08/07/23 06:34 08/07/23 06:34 Height: 5 ft 4 in Weight (kg): 63.2 kg Body Mass Index: 23.9 BMI Classification: Normal - NPO >8 hours - Is Patient ?: No Home Medications and Allergies Home Medications: Ambulatory Orders Apremilast [Otezla] 30 mg ORAL DAILY 08/07/23 Losartan [Cozaar] 100 mg PO DAILY 08/07/23 Ascorbic Acid [Vitamin C] 500 mg PO DAILY 07/11/15 Calcium Carb/Mag Ox/Zinc Sulf [Hm Haqpunf-Oxvrgxlpe-Bhze Cplt] 1 each PO DAILY 07/11/15 Cholecalciferol (Vitamin D3) [Vitamin D] 1,000 unit PO DAILY 07/11/15 Flaxseed Oil 1,400 mg PO DAILY 07/11/15 Glucosam/Chondr-Msm6/Manganese [Glucosamine-Chondroitin Sftgl] 1 each PO DAILY 07/11/15 Ocuvite 1 cap PO DAILY 07/11/15 Omeprazole [Prilosec] 20 mg PO DAILY 07/11/15 Red Rice Yeast 2,400 mg PO DAILY 07/11/15 Melatonin [Vitajoy] 6 mg PO DAILY 07/21/15 Apremilast [Otezla] 30 mg ORAL DAILY 08/07/23 Losartan [Cozaar] 100 mg PO DAILY 08/07/23 Allergies/Adverse Reactions: Allergies Allergy/AdvReac Type Severity Reaction Status Date / Time lisinopril AdvReac Unknown Verified 05/07/23 12:09 Anes History & Medical History - Anesthetic History Anesthesia Complications: reports: No previous complications - Medical History Cardiovascular: reports: Hypertension Pulmonary: reports: None Gastrointestinal: reports: GERD, Other Urinary: reports: None Musculoskeletal: reports: Osteoarthritis, Other Endocrine/Autoimmune: reports: None Skin: reports: Psoriasis Smoking Status: Never smoker - Surgical History General: reports: Colonoscopy Urologic: reports: Bladder surgery Gynecologic: reports: Hysterectomy Orthopedic: reports: Knee replacement, Other Exam General: Alert, Oriented x3, Cooperative Dental: WNL Mouth Opening: Greater than 4 Fingerbreadths Neck Mobility: Normal Mallampati classification: II Respiratory: Lungs clear Cardiovascular: Regular rate Plan Anesthesia Type: MAC Consent for Procedure(s) Verified and Reviewed: Yes Code Status: Attempt Resuscitation ASA classification: 2-Mild systemic disease Is this case an emergency?: No
[2023-08-07] MEDS ORDERED: MIDAZOLAM 2 MG/2 ML VIAL ONE (07:58)
[2023-08-07] MEDS ORDERED: fentaNYL 100 MCG/2 ML VIAL ONE (07:58)
[2023-08-07] MEDS: BRIMONIDINE 0.2% OPHTH DROPS 5 ML OPTH ONE (08:08)
[2023-08-07] MEDS: EPINEPHrine 1 MG/ML AMP IR ONE (08:08)
[2023-08-07] MEDS: TRIAMCIN/MOXIFLOX OPHTHALMIC 0.6 ML VIAL IO ONE (08:09)
[2023-08-07] MEDS: PROPARACAINE 0.5% OPHTH DROPS 15 ML EACHEYE ONE (08:09)
[2023-08-07] MEDS: BSS/LIDOCAINE/EPINEPHRINE 1 ML SYRINGE IO ONE (08:09)
[2023-08-07] MEDS: VANCOMYCIN OPHTH (TOPICAL) 10 MG/ML SYRINGE TOP ONE (08:09)
[2023-08-07] MEDS: TIMOLOL 0.5% OPHTH DROPS OPTH ONE (08:09)
[2023-08-07] MEDS: LACTATED RINGERS 700 ML IV ONE (08:20)
[2023-08-07 08:28] VITALS: BP 112/74; O2SAT 96
--- NOTE | 2023-08-07 08:30 | OPERATIVE REPORT ---
Operative Report - Other Other Information/Narrative: Date of Surgery: 08/07/23 Preop Dx: Visually significant cataract right eye. This was the first cataract surgery. Postop Dx: Same Procedure: Phacoemulsification with posterior chamber intraocular lens implant right eye Surgeon: Dr. Pola Hawkins Anesthesia: Monitored anesthesia care Complications: None Operative Indications: This is a 78-year-old F with progressive vision loss in the right eye due to 2+ nuclear sclerotic, 2-3+ cortical, and 1+posterior subcapsular cataract. Best corrected visual acuity was 20/30 with glare to 20/50 vision in the right eye. Indications for surgery were: - Overall decrease in vision - Difficulty seeing words on a computer screen - Difficulty seeing street signs - Difficulty driving in low light or at night - Difficulty driving at night because of headlights from other vehicles - Difficulty with glare or bright lights in any situation The patient was consented at length concerning the risks and benefits of cataract surgery after which the patient expressed a desire to proceed with surgery. Operative Procedure: The patient was taken into OR#3 and placed under monitored anesthesia care. A surgical time-out was conducted confirming correct patient, correct procedure, and correct surgical site. The patient was given topical anesthesia and then prepped and draped in the usual sterile fashion. The eye was entered at the 6 and 3 oclock positions. Intracameral Shugarcaine was injected into the anterior chamber followed by a dispersive viscoelastic. A continuous-tear curvilinear capsulorhexis was performed. The nucleus was hydrodissected and phacoemulsified. The cortex was evacuated using automated infusion and aspiration. A cohesive viscoelastic was injected into the capsular bag and a 17.5 diopter intraocular lens was inserted into the bag. Infusion and aspiration were used to evacuate the viscoelastic materials from the eye. The wounds were hydrated and the eye inflated to physiologic pressure using balanced salt solution. Approximately 0.25ml of a mixture of triamcinolone and moxifloxacin was injected trans-sclerally into the vitreous in the inferotemporal quadrant using a 30 gauge cannula. An additional 0.25ml of a mixture of triamcinolone and moxifloxacin was injected subconjunctivally in the superior quadrant for infection and inflammation prophylaxis. Wound integrity was checked with Weck-Myesha sponges. The patient was taken from the operating room in good condition and given post-op instructions.
--- NOTE | 2023-08-07 08:48 | ANESTHESIA POST OP EVALUATION ---
Anesthesia Post Eval - Post Anesthesia Eval Vitals: Last Vital Signs Temp 36.3 C L 08/07/23 08:20 Pulse 97 08/07/23 08:20 Resp 16 08/07/23 08:20 BP 112/74 08/07/23 08:20 Pulse Ox 96 08/07/23 08:20 O2 Flow Rate CV Function Including HR & BP: Stable Pain Control: Satisfactory Nausea & Vomiting: Negative Mental Status: Baseline Respiratory Status: Airway Patent Hydration Status: Satisfactory Anesthesia Complications: None
== END 2023-08-07 06:15 | disposition home or self-care (01) ==
LOC: SDS 06:14
PROVIDERS: ATTEND Ophthalmology
DX: H25.811 Combined forms of age-related cataract, right eye (principal); I10 Essential (primary) hypertension
CPT/HCPCS: 66984; A9270; J3490; J7120

== ENCOUNTER 2023-09-05 08:00 | Outpatient (CLI) | payer MEDICARE, BC ==
[2023-09-05 20:17] LABS: BILIRUBIN,URINE NEGATIVE (NEGATIVE); GLUCOSE, URINE (UA) NEGATIVE (NEGATIVE); KETONES,URINE (UA) NEGATIVE (NEGATIVE); LEUKOCYTE ESTERASE, URINE MODERATE (NEGATIVE); NITRITE,URINE POSITIVE (NEGATIVE); OCCULT BLOOD,URINE NEGATIVE (NEGATIVE); PROTEIN,URINE NEGATIVE (NEGATIVE); UROBILINOGEN,URINE 0.2 (NORMAL) E.U./dL (NORMAL)
[2023-09-05 20:21] LABS: CLARITY,URINE HAZY (CLEAR)
[2023-09-05 20:36] LABS: BACTERIA,URINE Moderate /HPF (None Seen); RBC,URINE 0-5 /HPF (0-5); SQUAMOUS EPITHELIAL CELL,UR FEW Squamous (<= Few); WBC,URINE >25 /HPF (0-5)
== END 2023-09-05 23:59 | disposition home or self-care (01) ==
LOC: LAB.F 08:00
PROVIDERS: ATTEND Registered Nurse
DX: R30.0 Dysuria (principal)
CPT/HCPCS: 81001; 87086; 87181

== ENCOUNTER 2023-09-18 08:00 | Outpatient (CLI) | payer MEDICARE, BC ==
[2023-09-18 14:25] LABS: BILIRUBIN,URINE NEGATIVE (NEGATIVE); GLUCOSE, URINE (UA) NEGATIVE (NEGATIVE); KETONES,URINE (UA) NEGATIVE (NEGATIVE); LEUKOCYTE ESTERASE, URINE LARGE (NEGATIVE); NITRITE,URINE NEGATIVE (NEGATIVE); OCCULT BLOOD,URINE NEGATIVE (NEGATIVE); PROTEIN,URINE NEGATIVE (NEGATIVE); UROBILINOGEN,URINE 0.2 (NORMAL) E.U./dL (NORMAL)
[2023-09-18 14:28] LABS: CLARITY,URINE HAZY (CLEAR)
[2023-09-18 15:29] LABS: RBC,URINE 0-5 /HPF (0-5); SQUAMOUS EPITHELIAL CELL,UR NONE SEEN (<= Few); WBC,URINE >25 /HPF (0-5)
[2023-09-18 15:30] LABS: BACTERIA,URINE Few /HPF (None Seen); EPITHELIAL CELLS,UR FEW Transitional /HPF (<= Few)
== END 2023-09-18 23:59 | disposition home or self-care (01) ==
LOC: LAB.S 08:00
PROVIDERS: ATTEND Registered Nurse
DX: R30.0 Dysuria (principal); N39.0 Urinary tract infection, site not specified
CPT/HCPCS: 81001; 87086; 87181

== ENCOUNTER 2024-01-15 08:17 | Day surgery (SDC) | payer MEDICARE, BC ==
[2024-01-15] MEDS: LACTATED RINGERS 1,000 ML IV ONE ×2 (08:21→10:02)
[2024-01-15] MEDS: PROPARACAINE 0.5% OPHTH DROPS 15 ML ONE (08:35)
[2024-01-15] MEDS: KETOROLAC TROMETHAMINE 0.5% OPHTH DROPS 5 ML ONE (08:36)
[2024-01-15] MEDS: CYCLOPENTOLATE 1% OPHTH DROPS 2 ML ONE (08:37)
[2024-01-15] MEDS: PHENYLEPHRINE 2.5% OPHTH 2 ML DROPS ONE (08:38)
[2024-01-15] MEDS ORDERED: MIDAZOLAM 2 MG/2 ML VIAL ONE (09:16)
[2024-01-15] MEDS ORDERED: TIMOLOL 0.5% OPHTH DROPS ONE (09:32)
[2024-01-15] MEDS ORDERED: BSS/LIDOCAINE/EPINEPHRINE 1 ML VIAL ONE (09:32)
[2024-01-15] MEDS ORDERED: TRIAMCIN/MOXIFLOX OPHTHALMIC 0.6 ML VIAL IO ONE (09:32)
[2024-01-15] MEDS ORDERED: EPINEPHrine 1 MG/ML AMP ONE (09:32)
[2024-01-15] MEDS ORDERED: BRIMONIDINE 0.2% OPHTH DROPS 5 ML ONE (09:32)
--- NOTE | 2024-01-15 09:39 | ANESTHESIA ---
Pre-Anesthesia VS, & Labs - Diagnosis L eye cataract - Procedure L extraction cataract with IOL Vital Signs: Temp Pulse Resp BP Pulse Ox O2 Flow Rate 36 C L 84 18 142/70 H 99 01/15/24 08:26 01/15/24 08:26 01/15/24 08:26 01/15/24 08:26 01/15/24 08:26 Height: 5 ft 3 in Weight (kg): 61.6 kg Body Mass Index: 24.0 BMI Classification: Normal - NPO >8 hours - Is Patient ?: No - Lab Results Lab results reviewed: Yes Home Medications and Allergies Ascorbic Acid [Vitamin C] 500 mg PO DAILY 07/11/15 Calcium Carb/Mag Ox/Zinc Sulf [Hm Eeqjeqd-Mwctbmotd-Yovf Cplt] 1 each PO DAILY 07/11/15 Cholecalciferol (Vitamin D3) [Vitamin D] 1,000 unit PO DAILY 07/11/15 Flaxseed Oil 1,400 mg PO DAILY 07/11/15 Glucosam/Chondr-Msm6/Manganese [Glucosamine-Chondroitin Sftgl] 1 each PO DAILY 07/11/15 Ocuvite 1 cap PO DAILY 07/11/15 Omeprazole [Prilosec] 20 mg PO DAILY 07/11/15 Red Rice Yeast 2,400 mg PO DAILY 07/11/15 Apremilast [Otezla] 30 mg ORAL BID 08/07/23 Losartan [Cozaar] 100 mg PO DAILY 08/07/23 Allergies/Adverse Reactions: Allergies Allergy/AdvReac Type Severity Reaction Status Date / Time lisinopril AdvReac Unknown Verified 05/07/23 12:09 Anes History & Medical History - Medical History Cardiovascular: reports: Hypertension Pulmonary: reports: None Gastrointestinal: reports: GERD, Other Urinary: reports: None Musculoskeletal: reports: Osteoarthritis, Other Endocrine/Autoimmune: reports: None Skin: reports: Psoriasis Smoking Status: Never smoker - Surgical History General: reports: Colonoscopy Eyes Ears Nose Throat (EENT): reports: Cataracts Urologic: reports: Bladder surgery Gynecologic: reports: Hysterectomy Orthopedic: reports: Knee replacement, Other Exam General: Alert, Oriented x3, Cooperative Dental: WNL Mouth Openin Fingerbreadth Neck Mobility: Normal Mallampati classification: II Thyromental Distance: 4-6 cm Respiratory: Lungs clear, Normal breath sounds, No respiratory distress Cardiovascular: Regular rate Neurological: Normal speech Mental/Cognitive Status: Alert/Oriented X3, Normal for patient Cognitive Status: Within normal limits Plan Anesthesia Type: MAC Consent for Procedure(s) Verified and Reviewed: Yes Code Status: Attempt Resuscitation ASA classification: 2-Mild systemic disease Is this case an emergency?: No
[2024-01-15] MEDS: BRIMONIDINE 0.2% OPHTH DROPS 5 ML OPTH ONE (09:42)
[2024-01-15] MEDS: TIMOLOL 0.5% OPHTH DROPS OPTH ONE (09:42)
[2024-01-15] MEDS: EPINEPHrine 1 MG/ML AMP IR ONE (09:42)
[2024-01-15] MEDS: TRIAMCIN/MOXIFLOX OPHTHALMIC 0.6 ML VIAL IO ONE (09:43)
[2024-01-15] MEDS: PROPARACAINE 0.5% OPHTH DROPS 15 ML LEFTEYE ONE (09:43)
[2024-01-15] MEDS: VANCOMYCIN OPHTH (TOPICAL) 10 MG/ML SYRINGE TOP ONE (09:43)
[2024-01-15] MEDS: BSS/LIDOCAINE/EPINEPHRINE 1 ML SYRINGE IO ONE (09:43)
[2024-01-15 10:04] VITALS: O2SAT 100
--- NOTE | 2024-01-15 10:08 | ANESTHESIA POST OP EVALUATION ---
Anesthesia Post Eval - Post Anesthesia Eval Vitals: Last Vital Signs Temp 36.6 C 01/15/24 10:02 Pulse 88 01/15/24 10:02 Resp 16 01/15/24 10:02 BP 123/59 L 01/15/24 10:02 Pulse Ox 100 01/15/24 10:02 O2 Flow Rate CV Function Including HR & BP: Stable Pain Control: Satisfactory Nausea & Vomiting: Negative Mental Status: Baseline Respiratory Status: Airway Patent Hydration Status: Satisfactory Anesthesia Complications: None
--- NOTE | 2024-01-15 10:14 | OPERATIVE REPORT ---
Operative Report - Other Other Information/Narrative: Date of Surgery: 01/15/24 Preop Dx: Visually significant cataract left eye. Cataract surgery was performed in the right eye on . Postop Dx: Same Procedure: Phacoemulsification with posterior chamber intraocular lens implant left eye Surgeon: Dr. Pola Hawkins Anesthesia: Monitored anesthesia care Complications: None Operative Indications: This is a 78-year-old F with progressive vision loss in the left eye due to 2+ nuclear sclerotic, 2-3+ cortical, and 1+ posterior subcapsular cataract. Best corrected visual acuity was 20/40 with glare to 20/100 vision in the left eye. Indications for surgery were: - Overall decrease in vision - Difficulty seeing words on a computer screen - Difficulty reading - Difficulty seeing words, closed captions, or game scores on TV - Difficulty driving in low light or at night - Difficulty driving at night because of headlights from other vehicles The patient was consented at length concerning the risks and benefits of cataract surgery after which the patient expressed a desire to proceed with surgery. Operative Procedure: The patient was taken into OR#3 and placed under monitored anesthesia care. A surgical time-out was conducted confirming correct patient, correct procedure, and correct surgical site. The patient was given topical anesthesia and then prepped and draped in the usual sterile fashion. The eye was entered at the 6 and 3 oclock positions. Intracameral Shugarcaine was injected into the anterior chamber followed by a dispersive viscoelastic. A continuous-tear curvilinear capsulorhexis was performed. The nucleus was hydrodissected and phacoemulsified. The cortex was evacuated using automated infusion and aspiration. A cohesive viscoelastic was injected into the capsular bag and a 21.5 diopter intraocular lens was inserted into the bag. Infusion and aspiration were used to evacuate the viscoelastic materials from the eye. The wounds were hydrated and the eye inflated to physiologic pressure using balanced salt solution. Approximately 0.25ml of a mixture of triamcinolone and moxifloxacin was injected trans-sclerally into the vitreous in the inferotemporal quadrant using a 30 gauge cannula. An additional 0.25ml of a mixture of triamcinolone and moxifloxacin was injected subconjunctivally in the superior quadrant for infection and inflammation prophylaxis. Wound integrity was checked with Weck-Myesha sponges. The patient was taken from the operating room in good condition and given post-op instructions.
[2024-01-15 10:26] VITALS: BP 126/68
== END 2024-01-15 08:18 | disposition home or self-care (01) ==
LOC: SDS 08:17
PROVIDERS: ATTEND Ophthalmology
DX: H25.812 Combined forms of age-related cataract, left eye (principal); Z98.41 Cataract extraction status, right eye
CPT/HCPCS: 66984; A9270; J3490; J7120

== ENCOUNTER 2024-02-16 08:00 | Outpatient (CLI) | payer MEDICARE, BC ==
--- NOTE | 2024-02-17 22:09 | XRAY Report ---
PROCEDURE: Wrist 3+V RT INDICATIONS: RIGHT WRIST PAIN TECHNIQUE: 3 views of the wrist were acquired. COMPARISON: None FINDINGS: Bones: Generalized decreased osseous mineralization present. Chondrocalcinosis noted. No fracture. Soft tissues: No suspicious soft tissue calcifications or masses. IMPRESSION: Osteopenia. Degenerative changes. No fracture. Reviewed by: Nick Whitehead MD on 02/17/2024 9:07 PM [email or web address] Approved by: Nick Whitehead MD on 02/17/2024 9:07 PM AKDT Station ID: [id number]
== END 2024-02-16 23:59 | disposition home or self-care (01) ==
LOC: DI.S 08:00
PROVIDERS: ATTEND Registered Nurse
DX: M19.031 Primary osteoarthritis, right wrist (principal)

== ENCOUNTER 2024-05-14 18:45 | Inpatient (IN) ==
--- NOTE | 2024-05-14 19:18 | ED Physician Documentation ---
PD HPI ABD PAIN Stated complaint Stated Complaint: VOMITING Chief complaint Chief Complaint: Abd Pain Additional information Additional information: 79yo woman with hx remote Hyst and bladder lifft or sling with RLQ pain starting 2am this morning radiating to center. Went to [facility], had positive UA and rx bactrim, did not fill as pt feels not c/w uti. Violent vomiting 3-4 times after that with large volume with food from yesterday. But no nausea. Had hard BM tod ay. Meds/Allgy Home Medications Ambulatory Orders Medication Instructions Recorded Confirmed Flaxseed Oil 1,400 mg PO DAILY 07/11/15 05/14/24 Ocuvite 1 cap PO DAILY 07/11/15 05/14/24 Red Rice Yeast 2,400 mg PO DAILY 07/11/15 05/14/24 ascorbic acid (vitamin C) 1,000 mg 500 mg PO DAILY 07/11/15 05/14/24 chewable tablet calcium 333 mg 1 ea PO DAILY 07/11/15 05/14/24 (carbonate)-magnesium 133 mg-zinc 5 mg (sulfate) tablet cholecalciferol (vitamin D3) 25 1,000 unit PO DAILY 07/11/15 05/14/24 mcg (1,000 unit) capsule (Vitamin D3) glucosamine 467 mg-chondroitin msm 1 ea PO DAILY 07/11/15 05/14/24 no.6 438 mg-manganes 0.7 mg capsule omeprazole 20 mg capsule,delayed 20 mg PO DAILY 07/11/15 05/14/24 release (Prilosec) apremilast 30 mg tablet (Otezla) 30 mg ORAL BID 08/07/23 05/14/24 losartan 50 mg tablet 100 mg PO DAILY 08/07/23 05/14/24 sulfamethoxazole 800 1 tab PO Q12H 7 days #14 tabs 05/14/24 05/14/24 mg-trimethoprim 160 mg tablet (Bactrim DS) Allergies Allergies Allergy/AdvReac Type Severity Reaction Status Date / Time lisinopril AdvReac Unknown Verified 05/14/24 18:57 PFSH Medical History Medical History (Updated 05/14/24 @ 21:51 by Fady Deluca MD) Ganglion cyst (08/07/09) Social History Social History Smoking Status: Never smoker If you are a former smoker, when did you quit? (Date/Year): never smoked Do you dip or chew tobacco?: No Home Mobility Equipment: Wheeled walker Do you feel safe in your home environment?: Yes Suffered physical, verbal, emotional, or financial abuse?: No History of Abuse: No Exam Constitutional normal general appearance and no apparent distress Respiratory breath sounds equal bilaterally and normal respiratory effort Cardiovascular normal heart rate noted, regular rhythm noted and no murmur Gastrointestinal abdomen normal to inspection and abdomen soft to palpation mild diffuse ttp, no surgical signs, absent sounds Neurology GCS 15 Results Vitals Vitals: Vital Signs - 24 hr 05/14/24 18:54 05/14/24 20:28 Temperature 36.4 C L Temperature Source Temporal Artery Scan Pulse Rate 103 H 85 Respiratory Rate 18 Blood Pressure 165/92 H 150/85 H O2 Saturation 95 95 O2 Source Room air Pain Intensity 3 0 Oxygen O2 Source [With Activity] Room air O2 Source Room air Labs Labs: Laboratory Tests 05/14/24 05/14/24 19:42 19:58 WBC 11.5 H RBC 5.16 Hgb 14.8 Hct 45.5 MCV 88.2 MCH 28.7 MCHC 32.5 RDW 14.4 Plt Count 317 MPV 9.9 Neut # (Auto) Not Reportable Lymph # (Auto) Not Reportable [place] # (Auto) Not Reportable Eos # (Auto) Not Reportable Baso # (Auto) Not Reportable Absolute Nucleated RBC Not Reportable Total Counted 100 Band Neuts % (Manual) 1 Abnorm Lymph % (Manual) 0 Nucleated RBC % Not Reportable Neutrophils # (Manual) 9.0 H Lymphocytes # (Manual) 0.7 L Monocytes # (Manual) 1.7 H Eosinophils # (Manual) 0.0 Basophils # (Manual) 0.1 Differential Comment MANUAL DIFFERENTIAL Platelet Estimate NORMAL (130-450,000) Platelet Morphology NORMAL APPEARANCE RBC Morph Micro Appear NORMAL APPEARANCE Sodium 141 Potassium 3.5 Chloride 105 Carbon Dioxide 29 Anion Gap 7.0 BUN 23 H Creatinine 0.5 L Estimated GFR (MDRD) 118 Glucose 132 H Calcium 12.0 H* Phosphorus 2.9 Total Bilirubin 0.9 AST 19 ALT 13 Alkaline Phosphatase 63 Total Protein 7.2 Albumin 4.7 Globulin 2.5 Albumin/Globulin Ratio 1.9 Lipase 15 Total Intact PTH 93 H Urine Color YELLOW Urine Clarity CLOUDY Urine pH 6.0 Ur Specific K[place]aid >=1.030 H Urine Protein NEGATIVE Urine Glucose (UA) NEGATIVE Urine Ketones 15 H Urine Occult Blood SMALL H Urine Nitrite POSITIVE H Urine Bilirubin NEGATIVE Urine Urobilinogen 0.2 (NORMAL) Ur Leukocyte Esterase TRACE H Urine RBC 0-5 Urine WBC >25 H Ur Epithelial Cells RARE Transitional Ur Squamous Epith Cells RARE Squamous Urine Bacteria Many H Ur Microscopic Review INDICATED Urine Culture Comments INDICATED Rads (name of study) CT A/P: Relevant Findings:: Final report received and EMP independent interpretation of test (SBO) PD Medical Decision Making ED course ED course: This is a kassandra and very healthy 79-year-old woman who presents with abdominal pain and exam that is concerning for small bowel obstruction. Workup demonstrates no white count. She does have critical hypercalcemia at 12. Review of the chart shows earlier this year she had a modestly elevated calcium level. She does not recall any addressing of this. PTH added on and high. CT showing bowel obstruction. Case discussed in person with Dr. Mar, our surgeon who will follow along and recommends NG tube. Discussed with patient and she is wanting to think about the NG tube. Spoke with Dr. Jimenes for admission at 9:53 PM. Discharge Plan Discharge Patient Disposition: 66 [facility] DC/Xfer Condition: Stable Clinical Impression: Hx SBO Interventions: ED Admission Assessment Last Done: 05/14/24 23:16
[2024-05-14] MEDS ORDERED: iohexoL-300 100 ML VIAL ONE (19:32)
[2024-05-14 19:49] LABS: BASOPHILS % (AUTO) 0.2 %; EOSINOPHILS % (AUTO) 0.6 %; HCT - HEMATOCRIT 45.5 % (37.0-47.0); HGB - HEMOGLOBIN 14.8 g/dL (12.0-16.0); LYMPHOCYTES % (AUTO) 5.2 %; MEAN CORPUSCULAR HEMOGLOBIN 28.7 pg (27.0-31.0); MEAN CORPUSCULAR HGB CONC 32.5 g/dL (32.0-36.0); MEAN CORPUSCULAR VOLUME 88.2 fL (81.0-99.0); MEAN PLATELET VOLUME 9.9 fL (7.9-10.8); MONOCYTES % (AUTO) 15.3 %; NEUTROPHILS % (AUTO) 77.1 %; PLT - PLATELET COUNT 317 10^3/uL (130-450); RED BLOOD COUNT 5.16 10^6/uL (4.20-5.40); RED CELL DISTRIBUTION WIDTH 14.4 % (12.0-15.0); WHITE BLOOD COUNT 11.5 x10^3/uL (4.8-10.8)
[2024-05-14 19:53] LABS: ABNORMAL LYMPHS % (MANUAL) 0 %
[2024-05-14 20:15] LABS: ALBUMIN 4.7 g/dL (3.2-5.5); ALBUMIN/GLOBULIN RATIO 1.9 (1.0-2.2); BILIRUBIN,TOTAL 0.9 mg/dL (0.2-1.0); CREATININE 0.5 mg/dL (0.6-1.3); POTASSIUM 3.5 mmol/L (3.5-4.5); TOTAL PROTEIN 7.2 g/dL (6.4-8.9)
[2024-05-14 20:21] LABS: BILIRUBIN,URINE NEGATIVE (NEGATIVE); CLARITY,URINE CLOUDY (CLEAR); GLUCOSE, URINE (UA) NEGATIVE (NEGATIVE); KETONES,URINE (UA) 15 mg/dL (NEGATIVE); LEUKOCYTE ESTERASE, URINE TRACE (NEGATIVE); NITRITE,URINE POSITIVE (NEGATIVE); OCCULT BLOOD,URINE SMALL (NEGATIVE); PROTEIN,URINE NEGATIVE (NEGATIVE); UROBILINOGEN,URINE 0.2 (NORMAL) E.U./dL (NORMAL)
[2024-05-14 20:29] LABS: BACTERIA,URINE Many /HPF (None Seen); RBC,URINE 0-5 /HPF (0-5); SQUAMOUS EPITHELIAL CELL,UR RARE Squamous (<= Few); WBC,URINE >25 /HPF (0-5)
[2024-05-14 20:30] LABS: EPITHELIAL CELLS,UR RARE Transitional /HPF (<= Few)
[2024-05-14 20:42] LABS: PHOSPHORUS 2.9 mg/dL (2.5-5.0)
[2024-05-14] MEDS: SODIUM CHLORIDE 0.9% 1,000 ML IV STA (20:55)
[2024-05-14 21:02] LABS: BAND NEUTROPHILS % (MANUAL) 1 %; BASOPHILS # (MANUAL) 0.1 10^3/uL (0-0.1); BASOPHILS % (MANUAL) 1 %; DIFFERENTIAL COMMENT MANUAL DIFFERENTIAL; LYMPHOCYTES # (MANUAL) 0.7 10^3/uL (1.5-3.5); LYMPHOCYTES % (MANUAL) 6 %; MONOCYTES # (MANUAL) 1.7 10^3/uL (0.0-1.0); PLATELET ESTIMATE, MANUAL NORMAL (130-450,000) (NORMAL); PLATELET MORPHOLOGY NORMAL APPEARANCE (NORMAL); RBC MORPHOLOGY (MULTIPLE) NORMAL APPEARANCE (NORMAL)
--- NOTE | 2024-05-14 21:35 | CT Report ---
PROCEDURE: CT Abdomen/Pelvis W INDICATIONS: Abdominal pain, acute, nonlocalized, IV only CONTRAST: 100 ML OMNI 300 TECHNIQUE: After the administration of intravenous contrast, a CT scan of the abdomen and pelvis was performed. Images were recorded and evaluated at appropriate window settings. Reformats: coronal and sagittal. F or radiation dose reduction, the following was used: automated exposure control, adjustment of mA and /or kV according to patient size. COMPARISON: None. FINDINGS: Image quality: Diagnostic. Lower chest: Unremarkable. Liver: No solid mass. Gallbladder: No radiopaque stones or wall thickening. Biliary tree: No intrahepatic or extrahepatic dilation, accounting for age. Spleen: No splenomegaly. Pancreas: No pancreatic ductal dilation. Adrenals: No adrenal nodule. Kidneys and ureters: No hydronephrosis. No renal cystic lesion which requires follow up. No solid mas s. Stomach, bowel and peritoneum: Multiple fluid-filled dilated loops of small bowel measuring up to 3.6 cm. No definite transition point is identified. There appears to be a few nondilated loops of small bowel in the right pelvis. No abnormal wall thickening. Small volume ascites. Lymph nodes: No central or retroperitoneal adenopathy. Vessels: No infrarenal aortic aneurysm. Atherosclerotic vascular calcifications. Patent portal vein. PELVIS Reproductive organs: Unremarkable. Bladder: No abnormal wall thickening, accounting for underdistention. Pelvic lymph nodes: No pelvic adenopathy by size criteria. Bones: No aggressive osseous abnormality. Mild degenerative changes. Other: No significant ventral or inguinal hernia. IMPRESSION: 1.Multiple fluid-filled dilated loops of small bowel measuring up to 3.6 cm. Findings are concerning for obstruction. While no definite transition point is identified, there appears to be a few nondilat ed loops of small bowel within the right pelvis, possible transition point in this region. 2.No extraluminal gas to suggest perforation. Small amount of ascites is likely reactive. Reviewed by: Yonatan Nicolas MD on 05/14/2024 9:34 PM PST Approved by: Yonatan Nicolas MD on 05/14/2024 9:34 PM PST Station ID: [id number]
[2024-05-14] MEDS ORDERED: ONDANSETRON 4 MG/2 ML VIAL IVP PRN (21:52)
--- NOTE | 2024-05-14 22:28 | HISTORY & PHYSICAL EXAMINATION ---
Chief Complaint Chief Complaint Chief Complaint: Abdominal pain History of Present Illness History of Present Illness HPI Comment/Other: 79 y old female with PMH HTN presented to the ER due to Abdominal pain and nausea and vomiting for 1 day. Denies fever, chest pain, SOB, symptoms On presentatoon, pt was afebrile Labs showed WBC 11, CA 12 , PTH 92, UTI CT abdomen/pelvis showed SBO In ER, pt was given IVF As per ER physician ( Dr Deluca), he consulted with surgeon ux information architect who recommended NG tube Pt is admitted due to SBO, UTI, hypercalcemia Review of Systems Status of ROS: 10 or more systems reviewed and unremarkable except as noted in history and below [facility] Medical History Medical History (Updated 05/14/24 @ 21:51 by Fady Deluca MD) Ganglion cyst (08/07/09) Social History Social History Smoking Status: Never smoker If you are a former smoker, when did you quit? (Date/Year): never smoked Do you dip or chew tobacco?: No Home Mobility Equipment: Wheeled walker Do you feel safe in your home environment?: Yes Suffered physical, verbal, emotional, or financial abuse?: No History of Abuse: No Meds/Allgy Home Medications Ambulatory Orders Medication Instructions Recorded Confirmed Flaxseed Oil 1,400 mg PO DAILY 07/11/15 05/14/24 Ocuvite 1 cap PO DAILY 07/11/15 05/14/24 Red Rice Yeast 2,400 mg PO DAILY 07/11/15 05/14/24 ascorbic acid (vitamin C) 1,000 mg 500 mg PO DAILY 07/11/15 05/14/24 chewable tablet calcium 333 mg 1 ea PO DAILY 07/11/15 05/14/24 (carbonate)-magnesium 133 mg-zinc 5 mg (sulfate) tablet cholecalciferol (vitamin D3) 25 1,000 unit PO DAILY 07/11/15 05/14/24 mcg (1,000 unit) capsule (Vitamin D3) glucosamine 467 mg-chondroitin msm 1 ea PO DAILY 07/11/15 05/14/24 no.6 438 mg-manganes 0.7 mg capsule omeprazole 20 mg capsule,delayed 20 mg PO DAILY 07/11/15 05/14/24 release (Prilosec) apremilast 30 mg tablet (Otezla) 30 mg ORAL BID 08/07/23 05/14/24 losartan 50 mg tablet 100 mg PO DAILY 08/07/23 05/14/24 sulfamethoxazole 800 1 tab PO Q12H 7 days #14 tabs 05/14/24 05/14/24 mg-trimethoprim 160 mg tablet (Bactrim DS) Allergies Allergies Allergy/AdvReac Type Severity Reaction Status Date / Time lisinopril AdvReac Unknown Verified 05/14/24 18:57 Exam Constitutional normal general appearance HENMT normocephalic Eyes PERRL Lymph no lymphadenopathy noted Chest inspection of chest normal Respiratory breath sounds equal bilaterally Cardiovascular normal heart rate noted Gastrointestinal abdomen soft to palpation Genitourinary no CVA tenderness Extremities normal to inspection Neurology no focal motor deficit noted Skin no rash Conclusion/Plan Problem List (1) Hx SBO: Plan: A: SBO UTI Hypercalcemia Leukocytosis Nausea and vomiting Plan: Admit in tele NPO NG tube with low wall suction strart NS @ 100 cc/h Monitor I/O , electrolytes As per Dr Deluca, he consulted surgeon ux information architect Follow cx start iv rocephin Zofran iv prn DVT prophylaxic: SCD Full code Pt is admitted as inpatient as more than 2 midnight stay is expected Lab Results 05/14/24 19:42 05/14/24 19:42
[2024-05-14] MEDS: SODIUM CHLORIDE 0.9% 1,000 ML IV SCH (22:39)
[2024-05-14] MEDS: LIDOCAINE 2% URO-JET 5 ML SYRINGE UR STA (22:41)
[2024-05-14] MEDS: iohexoL-300 100 ML VIAL IVP ONE (22:51)
[2024-05-15] MEDS: SODIUM CHLORIDE FLUSH 0.9% 10 ML SYRINGE IVP SCH (00:03)
--- NOTE | 2024-05-15 01:10 | XRAY Report ---
PROCEDURE: XR Chest for Line Placement INDICATIONS: NG tube placement TECHNIQUE: One view of the chest was acquired. COMPARISON: 09/25/2022. FINDINGS: Surgical changes and devices: NG tube with side-port projecting over the expected location of the st omach, tip is below the field of view. Lungs and pleura: No pleural effusions or pneumothorax. No consolidation. Mediastinum: Mediastinal contours appear normal. Heart size is normal. Bones and chest wall: No suspicious bony lesions. Overlying soft tissues appear unremarkable. IMPRESSION: No acute cardiopulmonary process. NG tube appears appropriately positioned. Reviewed by: Yonatan Plasencia MD on 05/15/2024 1:08 AM PST Approved by: Yonatan Plasencia MD on 05/15/2024 1:08 AM PST Station ID: [id number]
[2024-05-15 05:33] LABS: BASOPHILS % (AUTO) 0.1 %; EOSINOPHILS % (AUTO) 0.7 %; HCT - HEMATOCRIT 40.8 % (37.0-47.0); HGB - HEMOGLOBIN 13.4 g/dL (12.0-16.0); LYMPHOCYTES % (AUTO) 12.9 %; MEAN CORPUSCULAR HEMOGLOBIN 29.2 pg (27.0-31.0); MEAN CORPUSCULAR HGB CONC 32.8 g/dL (32.0-36.0); MEAN CORPUSCULAR VOLUME 88.9 fL (81.0-99.0); MONOCYTES % (AUTO) 23.8 %; NEUTROPHILS % (AUTO) 61.3 %; PLT - PLATELET COUNT 278 10^3/uL (130-450); RED BLOOD COUNT 4.59 10^6/uL (4.20-5.40); RED CELL DISTRIBUTION WIDTH 14.6 % (12.0-15.0); WHITE BLOOD COUNT 9.4 x10^3/uL (4.8-10.8)
[2024-05-15 05:51] LABS: MAGNESIUM 2.2 mg/dL (1.7-2.3); PHOSPHORUS 2.3 mg/dL (2.5-5.0)
[2024-05-15 05:52] LABS: ALBUMIN 3.9 g/dL (3.2-5.5); CALCIUM 10.3 mg/dL (8.5-10.3); CREATININE 0.4 mg/dL (0.6-1.3); POTASSIUM 3.3 mmol/L (3.5-4.5); TOTAL PROTEIN 5.9 g/dL (6.4-8.9)
[2024-05-15 05:54] LABS: CALCIUM, IONIZED 1.28 mmol/L (1.15-1.33); VBG PH 7.409 (7.31-7.41)
[2024-05-15 05:56] LABS: ABNORMAL LYMPHS % (MANUAL) 0 %; BAND NEUTROPHILS % (MANUAL) 0 %
[2024-05-15] MEDS ORDERED: POTASSIUM PHOSPHATE 15 MMOL in SODIUM CHLORIDE 0.9% 250 ML IV ONE (06:00)
[2024-05-15 06:28] LABS: LYMPHOCYTES # (MANUAL) 0.9 10^3/uL (1.5-3.5); LYMPHOCYTES % (MANUAL) 10 %; MONOCYTES # (MANUAL) 1.9 10^3/uL (0.0-1.0); MYELOCYTES % (MANUAL) 1 %; NEUTROPHILS # (MANUAL) 6.5 10^3/uL (1.5-6.6)
[2024-05-15 06:29] LABS: DIFFERENTIAL COMMENT MANUAL DIFFERENTIAL; PLATELET ESTIMATE, MANUAL NORMAL (130-450,000) (NORMAL); PLATELET MORPHOLOGY NORMAL APPEARANCE (NORMAL); RBC MORPHOLOGY (MULTIPLE) NORMAL APPEARANCE (NORMAL); WBC MORPHOLOGY (MULTIPLE) NORMAL APPEARANCE (NORMAL)
[2024-05-15] MEDS: cefTRIAXone 1 GM in SODIUM CHLORIDE 0.9% MINIBAG 100 ML IV SCH (08:29)
[2024-05-15] MEDS: POTASSIUM PHOSPHATE 15 MMOL in SODIUM CHLORIDE 0.9% 250 ML IV ONE (08:30)
--- NOTE | 2024-05-15 08:51 | PROVIDER PROGRESS NOTE ---
Subjective Subjective Subjective: Patient is a 79-year-old female with a history of hypertension who presented with 2 episodes of projectile emesis. She states that yesterday, she was at home, and she had a large bowel movement. After this, she had 1 episode of emesis without any blood or bile in it. She then had another episode a few hours later. She states that this was unlike any other episodes of emesis in terms of its urgency and its volume. She also had some abdominal pain in her right side, which she states is now completely resolved. She described as a sharp pain. She then went to the urgent care, where they diagnosed her with a UTI. She was advised to return to the emergency room if her symptoms got worse. Because she was having some worsening abdominal pain, nausea, she did return to the emergency room. Once here, a CAT scan of her abdomen was done which did show multiple fluid-filled dilated loops of small bowel, concerning for obstruction. No definite transition point was identified. An NG tube was placedthis is providing her with some discomfort. She has had no more episodes of nausea or vomiting. Surgery is following. Current Medications Current Medications Current Medications: Current Medications Generic Name Dose Route Start Last Admin Trade Name Freq PRN Reason Stop Dose Admin Sodium Chloride 1,000 mls @ 100 mls/hr 05/14/24 22:00 05/15/24 08:30 Normal Saline 0.9% IV 100 mls/hr .Q10H ONEL Administration Ceftriaxone Sodium 1 gm/ 100 mls @ 200 mls/hr 05/15/24 09:00 05/15/24 08:29 Sodium Chloride IV 200 mls/hr DAILY ONEL Administration Potassium Phosphate 15 mmol/ 255 mls @ 63 mls/hr 05/15/24 08:00 05/15/24 08:30 Sodium Chloride IV 05/15/24 12:02 63 mls/hr ONCE ONE Administration Protocol Ondansetron HCl 4 mg 05/14/24 21:52 Ondansetron 4 Mg/2 Ml Vial IVP Q6HR PRN Nausea / Vomiting Sodium Chloride 10 ml 05/15/24 01:00 05/15/24 08:31 Sodium Chloride Flush 0.9% 10 Ml Syringe IVP 10 ml 0100,0900,1700 ONEL Administration Sodium Chloride 10 ml 05/14/24 21:52 Sodium Chloride Flush 0.9% 10 Ml Syringe IVP PRN PRN NEEDED PER PROVIDER ORDERS Objective Vital Signs/Intake & Output Reviewed Vital Signs: Yes Vital Signs: Vital Signs x48h Pulse Resp BP Pulse Ox 05/15/24 07:00 71 22 153/68 H 93 05/15/24 06:00 74 21 150/70 H 93 05/15/24 05:00 105 H 20 131/80 H 95 05/15/24 04:00 81 18 125/53 L 92 05/15/24 03:00 78 19 117/54 L 94 05/15/24 02:00 78 12 129/54 L 95 05/15/24 01:00 78 23 146/75 H 93 Intake & Output: Intake & Output 05/13/24 05/14/24 05/15/24 05/16/24 05:59 05:59 05:59 05:59 Intake Total 1000 / 1000 985 / 985 Output Total 0 / 0 Balance 1000 / 1000 985 / 985 Weight (kg) 65 kg 65 kg Objective General Appearance: positive No acute distress and Alert; negative Anxious Eyes Bilateral: positive Normal inspection, PERRL and EOMI ENT: positive ENT inspection nml, Pharynx nml and No signs of dehydration Neck: positive Nml inspection, Thyroid nml and No JVD Respiratory: positive Chest non-tender, No respiratory distress and Breath sounds nml; negative Wheezes, Rales or Rhonchi Cardiovascular: positive Regular rate & rhythm, No murmur and Tachycardia Abdomen: positive Non-tender and No distention; negative Guarding, Rebound, Hepatomegaly or Splenomegaly Rectal: positive Stool - heme NEG and Stool - heme POS Back: positive Nml inspection; negative CVA tenderness (R) or CVA tenderness (L) Skin: positive Color nml, No rash, Warm and Dry Extremities: positive Non-tender, Full ROM, Nml appearance and No pedal edema Neurologic/Psychiatric: positive Oriented x3, CN's nml (2-12), Motor nml and Mood/affect nml Lab Results 05/15/24 04:28 05/15/24 04:28 Other Labs: Lab Results x24hrs 05/15/24 05/15/24 05/14/24 Range/Units 04:28 01:05 19:58 WBC 9.4 (4.8-10.8) x10^3/uL RBC 4.59 (4.20-5.40) 10^6/uL Hgb 13.4 (12.0-16.0) g/dL Hct 40.8 (37.0-47.0) % MCV 88.9 (81.0-99.0) fL MCH 29.2 (27.0-31.0) pg MCHC 32.8 (32.0-36.0) g/dL RDW 14.6 (12.0-15.0) % Plt Count 278 (130-450) 10^3/uL MPV 10.0 (7.9-10.8) fL Neut # (Auto) Not Reportable Lymph # (Auto) Not Reportable [place] # (Auto) Not Reportable Eos # (Auto) Not Reportable Baso # (Auto) Not Reportable Absolute Nucleated RBC Not Reportable Total Counted 100 Band Neuts % (Manual) 0 (0 - 10) % Abnorm Lymph % (Manual) 0 % Myelocytes % 1 H ( - 0) % Nucleated RBC % Not Reportable Neutrophils # (Manual) 6.5 (1.5-6.6) 10^3/uL Lymphocytes # (Manual) 0.9 L (1.5-3.5) 10^3/uL Monocytes # (Manual) 1.9 H (0.0-1.0) 10^3/uL Eosinophils # (Manual) 0.0 (0-0.7) 10^3/uL Basophils # (Manual) 0.0 (0-0.1) 10^3/uL Differential Comment MANUAL DIFFERENTIAL WBC Morphology NORMAL APPEARANCE (NORMAL) Platelet Estimate NORMAL (130-450,000) (NORMAL) Platelet Morphology NORMAL APPEARANCE (NORMAL) RBC Morph Micro Appear NORMAL APPEARANCE (NORMAL) VBG pH 7.409 (7.31-7.41) Ionized Calcium 1.28 (1.15-1.33) mmol/L Sodium 141 (135-145) mmol/L Potassium 3.3 L (3.5-4.5) mmol/L Chloride 107 (101-111) mmol/L Carbon Dioxide 28 (21-32) mmol/L Anion Gap 6.0 (6-13) BUN 15 (6-20) mg/dL Creatinine 0.4 L (0.6-1.3) mg/dL Estimated GFR (MDRD) 153 (>89) Glucose 113 H (74-104) mg/dL Calcium 10.3 (8.5-10.3) mg/dL Phosphorus 2.3 L (2.5-5.0) mg/dL Magnesium 2.2 (1.7-2.3) mg/dL Total Bilirubin 1.0 (0.2-1.0) mg/dL AST 17 (10-42) IU/L ALT 11 (10-60) IU/L Alkaline Phosphatase 52 (42-121) IU/L Total Protein 5.9 L (6.4-8.9) g/dL Albumin 3.9 (3.2-5.5) g/dL Globulin 2.0 L (2.1-4.2) g/dL Albumin/Globulin Ratio 2.0 (1.0-2.2) Lipase (11-82) U/L Total Intact PTH (12-88) pg/mL Urine Color YELLOW Urine Clarity CLOUDY (CLEAR) Urine pH 6.0 (5.0-7.5) PH Ur Specific [place] >=1.030 H (1.002-1.030) Urine Protein NEGATIVE (NEGATIVE) mg/dL Urine Glucose (UA) NEGATIVE (NEGATIVE) mg/dL Urine Ketones 15 H (NEGATIVE) mg/dL Urine Occult Blood SMALL H (NEGATIVE) Urine Nitrite POSITIVE H (NEGATIVE) Urine Bilirubin NEGATIVE (NEGATIVE) Urine Urobilinogen 0.2 (NORMAL) (NORMAL) E.U./dL Ur Leukocyte Esterase TRACE H (NEGATIVE) Urine RBC 0-5 (0-5) /HPF Urine WBC >25 H (0-5) /HPF Ur Epithelial Cells RARE Transitional (<= Few) /HPF Ur Squamous Epith Cells RARE Squamous (<= Few) Urine Bacteria Many H (None Seen) /HPF Ur Microscopic Review INDICATED Urine Culture Comments INDICATED Nasal Screen MRSA (PCR) NEGATIVE (NEGATIVE) 05/14/24 Range/Units 19:42 WBC 11.5 H (4.8-10.8) x10^3/uL RBC 5.16 (4.20-5.40) 10^6/uL Hgb 14.8 (12.0-16.0) g/dL Hct 45.5 (37.0-47.0) % MCV 88.2 (81.0-99.0) fL MCH 28.7 (27.0-31.0) pg MCHC 32.5 (32.0-36.0) g/dL RDW 14.4 (12.0-15.0) % Plt Count 317 (130-450) 10^3/uL MPV 9.9 (7.9-10.8) fL Neut # (Auto) Not Reportable Lymph # (Auto) Not Reportable [place] # (Auto) Not Reportable Eos # (Auto) Not Reportable Baso # (Auto) Not Reportable Absolute Nucleated RBC Not Reportable Total Counted 100 Band Neuts % (Manual) 1 (0 - 10) % Abnorm Lymph % (Manual) 0 % Myelocytes % ( - 0) % Nucleated RBC % Not Reportable Neutrophils # (Manual) 9.0 H (1.5-6.6) 10^3/uL Lymphocytes # (Manual) 0.7 L (1.5-3.5) 10^3/uL Monocytes # (Manual) 1.7 H (0.0-1.0) 10^3/uL Eosinophils # (Manual) 0.0 (0-0.7) 10^3/uL Basophils # (Manual) 0.1 (0-0.1) 10^3/uL Differential Comment MANUAL DIFFERENTIAL WBC Morphology (NORMAL) Platelet Estimate NORMAL (130-450,000) (NORMAL) Platelet Morphology NORMAL APPEARANCE (NORMAL) RBC Morph Micro Appear NORMAL APPEARANCE (NORMAL) VBG pH (7.31-7.41) Ionized Calcium (1.15-1.33) mmol/L Sodium 141 (135-145) mmol/L Potassium 3.5 (3.5-4.5) mmol/L Chloride 105 (101-111) mmol/L Carbon Dioxide 29 (21-32) mmol/L Anion Gap 7.0 (6-13) BUN 23 H (6-20) mg/dL Creatinine 0.5 L (0.6-1.3) mg/dL Estimated GFR (MDRD) 118 (>89) Glucose 132 H (74-104) mg/dL Calcium 12.0 H* (8.5-10.3) mg/dL Phosphorus 2.9 (2.5-5.0) mg/dL Magnesium (1.7-2.3) mg/dL Total Bilirubin 0.9 (0.2-1.0) mg/dL AST 19 (10-42) IU/L ALT 13 (10-60) IU/L Alkaline Phosphatase 63 (42-121) IU/L Total Protein 7.2 (6.4-8.9) g/dL Albumin 4.7 (3.2-5.5) g/dL Globulin 2.5 (2.1-4.2) g/dL Albumin/Globulin Ratio 1.9 (1.0-2.2) Lipase 15 (11-82) U/L Total Intact PTH 93 H (12-88) pg/mL Urine Color Urine Clarity (CLEAR) Urine pH (5.0-7.5) PH Ur Specific [place] (1.002-1.030) Urine Protein (NEGATIVE) mg/dL Urine Glucose (UA) (NEGATIVE) mg/dL Urine Ketones (NEGATIVE) mg/dL Urine Occult Blood (NEGATIVE) Urine Nitrite (NEGATIVE) Urine Bilirubin (NEGATIVE) Urine Urobilinogen (NORMAL) E.U./dL Ur Leukocyte Esterase (NEGATIVE) Urine RBC (0-5) /HPF Urine WBC (0-5) /HPF Ur Epithelial Cells (<= Few) /HPF Ur Squamous Epith Cells (<= Few) Urine Bacteria (None Seen) /HPF Ur Microscopic Review Urine Culture Comments Nasal Screen MRSA (PCR) (NEGATIVE) Diagnostic Imaging Diagnostic Imaging Results: positive Final report reviewed ABX Reporting Has patient been on IV antibiotics over the past 48 hours?: Yes Assessment/Plan Problem List (1) SBO (small bowel obstruction): Impression: Patient presented with nausea, vomiting, right-sided abdominal pain. CT abdomen/pelvis shows multiple fluid-filled dilated loops of small bowel measuring up to 3.6 cm with no definite transition point. Few nondilated loops in the right pelvis. NG tube placed. Zofran for nausea. Continue IV fluids, normal saline at 100 cc/h. General Surgery consulted, appreciate recommendations - spoken with, recommend follow through study. (2) Leukocytosis, unspecified: Impression: Resolved after IV fluid resuscitation. Likely reactive to above. Qualifiers: Leukocytosis type: unspecified Qualified Code(s): D72.829 - Elevated white blood cell count, unspecified (3) Hypokalemia: Impression: Due to decreased p.o. intake, will replete as necessary. (4) Hypercalcemia: Impression: Runs on the higher side; previous records reviewed from as far back as 2016, and patient always has had calcium greater than 9-10. She does endorse taking supplementation, and her external records show that she takes calcium supplements every day. Advised to stop at this time. She states that she been taking this for over 30 years. Acute hypercalcemia of 12 did resolve with IV fluids. This morning, it is 10.3. PTH mildly elevated. Would recommend follow-up with endocrinology in the outpatient setting for further workup. (5) Urinary tract infection: Impression: Patient does not have any symptoms at this time. Did have some urinary frequency prior to admission. Continue 3 days of Rocephin. Qualifiers: Hematuria presence: without hematuria Urinary tract infection type: s ite unspecified Qualified Code(s): N39.0 - Urinary tract infection, site not specified (6) Hypertension: Impression: Patient is strict n.p.o. at this time, including medications. Hold losartan at this time. May need IV pushes to help resolve blood pressure. Qualifiers: Hypertension type: unspecified Qualified Code(s): I10 - Essential (primary) hypertension (7) Psoriasis: Impression: Hold all oral medications, continue Otezla 30 mg twice daily when able for psoriasis.
--- NOTE | 2024-05-15 11:25 | PHARMACY PROGRESS NOTE ---
Best Possible Medication History Admit Date and Time: 05/14/24 2153 Home Medications Medication Instructions Recorded Confirmed Type Flaxseed Oil 1,400 mg PO DAILY 07/11/15 05/15/24 History Ocuvite 1 cap PO DAILY 07/11/15 05/15/24 History Red Rice Yeast 2,400 mg PO DAILY 07/11/15 05/15/24 History ascorbic acid (vitamin C) 1,000 mg 500 mg PO DAILY 07/11/15 05/15/24 History chewable tablet calcium 333 mg 1 ea PO DAILY 07/11/15 05/15/24 History (carbonate)-magnesium 133 mg-zinc 5 mg (sulfate) tablet cholecalciferol (vitamin D3) 25 1,000 unit PO DAILY 07/11/15 05/15/24 History mcg (1,000 unit) capsule (Vitamin D3) glucosamine 467 mg-chondroitin msm 1 ea PO DAILY 07/11/15 05/15/24 History no.6 438 mg-manganes 0.7 mg capsule omeprazole 20 mg capsule,delayed 20 mg PO DAILY 07/11/15 05/15/24 History release (Prilosec) apremilast 30 mg tablet (Otezla) 30 mg ORAL BID 08/07/23 05/15/24 History losartan 100 mg tablet 100 mg PO DAILY 05/15/24 05/15/24 History Processed by: Pharmacy Medications reviewed in ED?: No Medication History completed: Yes Patient Interview: Completed Secondary Source(s): Spouse/Significant other, Pharmacy records and Insurance records [facility] Statement: As the person ultimately responsible for medication therapy, providers are able to order a medication from an existing home medication list in [facility] via the "Reconcile Routine" prior to Confirmation of that medication by desktop support specialist. Such practice is discouraged except when the physician, in their clinical judgment, deems that a medical need exists for a medication without regard to previous use.
--- NOTE | 2024-05-15 12:11 | CONSULTATION NOTE ---
Referring Provider Name of Referring Provider:: Dr. Bartholomew Consult Date: 05/15/24 Chief Complaint Chief Complaint Chief Complaint: Abdominal pain, vomiting History of Present Illness History Obtained From History obtained from: Patient History of Present Illness HPI Comment/Other: Imelda is an 79 year old female who was awakened yesterday morning with right sided abdominal mpain asoociated with nausea and emesis. The pain was cramping and didn't last more than an hour but because of the nausea and vomiting, she went to the local clinic for evaluation. They discharged her with instructions to return to the ED if her symptoms didn't improve. Over the couse of yesterday her discomfort recurred as did the nausea and vomiting. She came to the ED and was admitted to the Medical Hospitalist Service with a possible SBO. An NGT was place and I was asked to evaluate the patient today. Since admission her abdominal pain has resolved. She has no nausea or emesis and is tolerating the NGT well. She is ambulatory but has not passed flatus or a bowel motion. FOR[facility]LY [facility] Medical History Medical History (Updated 05/15/24 @ 08:50 by Monique Bartholomew MD) Ganglion cyst (08/07/09) Surgical History Surgical History (Updated 05/15/24 @ 12:16 by Bigg Mar MD) History of bladder suspension procedure H/O vaginal hysterectomy Social History Social History Smoking Status: Never smoker If you are a former smoker, when did you quit? (Date/Year): never smoked Do you dip or chew tobacco?: No Do you vape?: No Patient requests smoking cessation consult: No Initiate information on smoking cessation: No Level: Independent Home Mobility Equipment: Wheeled walker Do you feel safe in your home environment?: Yes Suffered physical, verbal, emotional, or financial abuse?: No History of Abuse: No Substance Use: denies use POLST POLST Status: Full Code Meds/Allgy Home Medications Ambulatory Orders Medication Instructions Recorded Confirmed Flaxseed Oil 1,400 mg PO DAILY 07/11/15 05/15/24 Ocuvite 1 cap PO DAILY 07/11/15 05/15/24 Red Rice Yeast 2,400 mg PO DAILY 07/11/15 05/15/24 ascorbic acid (vitamin C) 1,000 mg 500 mg PO DAILY 07/11/15 05/15/24 chewable tablet calcium 333 mg 1 ea PO DAILY 07/11/15 05/15/24 (carbonate)-magnesium 133 mg-zinc 5 mg (sulfate) tablet cholecalciferol (vitamin D3) 25 1,000 unit PO DAILY 07/11/15 05/15/24 mcg (1,000 unit) capsule (Vitamin D3) glucosamine 467 mg-chondroitin msm 1 ea PO DAILY 07/11/15 05/15/24 no.6 438 mg-manganes 0.7 mg capsule omeprazole 20 mg capsule,delayed 20 mg PO DAILY 07/11/15 05/15/24 release (Prilosec) apremilast 30 mg tablet (Otezla) 30 mg ORAL BID 08/07/23 05/15/24 losartan 100 mg tablet 100 mg PO DAILY 05/15/24 05/15/24 Allergies Allergies Allergy/AdvReac Type Severity Reaction Status Date / Time lisinopril AdvReac Unknown Verified 05/14/24 18:57 Results Lab Results 05/15/24 04:28 05/15/24 04:28 Other Lab Results: Lab Results x24hrs 05/15/24 05/15/24 05/14/24 Range/Units 04:28 01:05 19:58 WBC 9.4 (4.8-10.8) x10^3/uL RBC 4.59 (4.20-5.40) 10^6/uL Hgb 13.4 (12.0-16.0) g/dL Hct 40.8 (37.0-47.0) % MCV 88.9 (81.0-99.0) fL MCH 29.2 (27.0-31.0) pg MCHC 32.8 (32.0-36.0) g/dL RDW 14.6 (12.0-15.0) % Plt Count 278 (130-450) 10^3/uL MPV 10.0 (7.9-10.8) fL Neut # (Auto) Not Reportable Lymph # (Auto) Not Reportable [place] # (Auto) Not Reportable Eos # (Auto) Not Reportable Baso # (Auto) Not Reportable Absolute Nucleated RBC Not Reportable Total Counted 100 Band Neuts % (Manual) 0 (0 - 10) % Abnorm Lymph % (Manual) 0 % Myelocytes % 1 H ( - 0) % Nucleated RBC % Not Reportable Neutrophils # (Manual) 6.5 (1.5-6.6) 10^3/uL Lymphocytes # (Manual) 0.9 L (1.5-3.5) 10^3/uL Monocytes # (Manual) 1.9 H (0.0-1.0) 10^3/uL Eosinophils # (Manual) 0.0 (0-0.7) 10^3/uL Basophils # (Manual) 0.0 (0-0.1) 10^3/uL Differential Comment MANUAL DIFFERENTIAL WBC Morphology NORMAL APPEARANCE (NORMAL) Platelet Estimate NORMAL (130-450,000) (NORMAL) Platelet Morphology NORMAL APPEARANCE (NORMAL) RBC Morph Micro Appear NORMAL APPEARANCE (NORMAL) VBG pH 7.409 (7.31-7.41) Ionized Calcium 1.28 (1.15-1.33) mmol/L Sodium 141 (135-145) mmol/L Potassium 3.3 L (3.5-4.5) mmol/L Chloride 107 (101-111) mmol/L Carbon Dioxide 28 (21-32) mmol/L Anion Gap 6.0 (6-13) BUN 15 (6-20) mg/dL Creatinine 0.4 L (0.6-1.3) mg/dL Estimated GFR (MDRD) 153 (>89) Glucose 113 H (74-104) mg/dL Calcium 10.3 (8.5-10.3) mg/dL Phosphorus 2.3 L (2.5-5.0) mg/dL Magnesium 2.2 (1.7-2.3) mg/dL Total Bilirubin 1.0 (0.2-1.0) mg/dL AST 17 (10-42) IU/L ALT 11 (10-60) IU/L Alkaline Phosphatase 52 (42-121) IU/L Total Protein 5.9 L (6.4-8.9) g/dL Albumin 3.9 (3.2-5.5) g/dL Globulin 2.0 L (2.1-4.2) g/dL Albumin/Globulin Ratio 2.0 (1.0-2.2) Lipase (11-82) U/L Total Intact PTH (12-88) pg/mL Urine Color YELLOW Urine Clarity CLOUDY (CLEAR) Urine pH 6.0 (5.0-7.5) PH Ur Specific [place] >=1.030 H (1.002-1.030) Urine Protein NEGATIVE (NEGATIVE) mg/dL Urine Glucose (UA) NEGATIVE (NEGATIVE) mg/dL Urine Ketones 15 H (NEGATIVE) mg/dL Urine Occult Blood SMALL H (NEGATIVE) Urine Nitrite POSITIVE H (NEGATIVE) Urine Bilirubin NEGATIVE (NEGATIVE) Urine Urobilinogen 0.2 (NORMAL) (NORMAL) E.U./dL Ur Leukocyte Esterase TRACE H (NEGATIVE) Urine RBC 0-5 (0-5) /HPF Urine WBC >25 H (0-5) /HPF Ur Epithelial Cells RARE Transitional (<= Few) /HPF Ur Squamous Epith Cells RARE Squamous (<= Few) Urine Bacteria Many H (None Seen) /HPF Ur Microscopic Review INDICATED Urine Culture Comments INDICATED Nasal Screen MRSA (PCR) NEGATIVE (NEGATIVE) 05/14/24 Range/Units 19:42 WBC 11.5 H (4.8-10.8) x10^3/uL RBC 5.16 (4.20-5.40) 10^6/uL Hgb 14.8 (12.0-16.0) g/dL Hct 45.5 (37.0-47.0) % MCV 88.2 (81.0-99.0) fL MCH 28.7 (27.0-31.0) pg MCHC 32.5 (32.0-36.0) g/dL RDW 14.4 (12.0-15.0) % Plt Count 317 (130-450) 10^3/uL MPV 9.9 (7.9-10.8) fL Neut # (Auto) Not Reportable Lymph # (Auto) Not Reportable [place] # (Auto) Not Reportable Eos # (Auto) Not Reportable Baso # (Auto) Not Reportable Absolute Nucleated RBC Not Reportable Total Counted 100 Band Neuts % (Manual) 1 (0 - 10) % Abnorm Lymph % (Manual) 0 % Myelocytes % ( - 0) % Nucleated RBC % Not Reportable Neutrophils # (Manual) 9.0 H (1.5-6.6) 10^3/uL Lymphocytes # (Manual) 0.7 L (1.5-3.5) 10^3/uL Monocytes # (Manual) 1.7 H (0.0-1.0) 10^3/uL Eosinophils # (Manual) 0.0 (0-0.7) 10^3/uL Basophils # (Manual) 0.1 (0-0.1) 10^3/uL Differential Comment MANUAL DIFFERENTIAL WBC Morphology (NORMAL) Platelet Estimate NORMAL (130-450,000) (NORMAL) Platelet Morphology NORMAL APPEARANCE (NORMAL) RBC Morph Micro Appear NORMAL APPEARANCE (NORMAL) VBG pH (7.31-7.41) Ionized Calcium (1.15-1.33) mmol/L Sodium 141 (135-145) mmol/L Potassium 3.5 (3.5-4.5) mmol/L Chloride 105 (101-111) mmol/L Carbon Dioxide 29 (21-32) mmol/L Anion Gap 7.0 (6-13) BUN 23 H (6-20) mg/dL Creatinine 0.5 L (0.6-1.3) mg/dL Estimated GFR (MDRD) 118 (>89) Glucose 132 H (74-104) mg/dL Calcium 12.0 H* (8.5-10.3) mg/dL Phosphorus 2.9 (2.5-5.0) mg/dL Magnesium (1.7-2.3) mg/dL Total Bilirubin 0.9 (0.2-1.0) mg/dL AST 19 (10-42) IU/L ALT 13 (10-60) IU/L Alkaline Phosphatase 63 (42-121) IU/L Total Protein 7.2 (6.4-8.9) g/dL Albumin 4.7 (3.2-5.5) g/dL Globulin 2.5 (2.1-4.2) g/dL Albumin/Globulin Ratio 1.9 (1.0-2.2) Lipase 15 (11-82) U/L Total Intact PTH 93 H (12-88) pg/mL Urine Color Urine Clarity (CLEAR) Urine pH (5.0-7.5) PH Ur Specific [place] (1.002-1.030) Urine Protein (NEGATIVE) mg/dL Urine Glucose (UA) (NEGATIVE) mg/dL Urine Ketones (NEGATIVE) mg/dL Urine Occult Blood (NEGATIVE) Urine Nitrite (NEGATIVE) Urine Bilirubin (NEGATIVE) Urine Urobilinogen (NORMAL) E.U./dL Ur Leukocyte Esterase (NEGATIVE) Urine RBC (0-5) /HPF Urine WBC (0-5) /HPF Ur Epithelial Cells (<= Few) /HPF Ur Squamous Epith Cells (<= Few) Urine Bacteria (None Seen) /HPF Ur Microscopic Review Urine Culture Comments Nasal Screen MRSA (PCR) (NEGATIVE) Diagnostic Imaging Results Diagnostic Imaging Results: positive Final report reviewed and Read independently Diagnostic Imaging Results Comments: CT Abd/Pelvis - several loops of distended small bowel. No evidence of perforation, torsion, or ischemia. No definitive transition zone CXR - NGT in gastric lumen Conclusion and Plan Diagnosis Diagnosis: Small bowel obstruction vs ileus. No clinical, lab or image evidence of ischemia or perforation Plan Plan: 1) Continue NGT decompression of the GI tract 2) SB Challenge study. One hour after installation of the contrast into the NGT, the NGT may be returned to LIS 3) Ambulate - NGT may be clamped while ambulating 4) Further recommendations will be based upon the results of her SB study and her clinical progress 5) Surgery will follow Jose Cruz Mar MD, [facility] General Surgery Service Review of Systems Constitutional Reports: Poor appetite Gastrointestinal Reports: Abdominal pain, Nausea, Vomiting and Poor appetite Exam Constitutional normal general appearance, no apparent distress and average body habitus [facility] normocephalic, head/scalp atraumatic, external ears normal and oral mucous membranes normal NGT in place - scant output since placement early this morning Eyes PERRL, EOMs intact bilaterally, conjunctivae normal and no scleral icterus Neck/C-Spine visual inspection normal, trachea midline and thyroid normal Lymph no lymphadenopathy noted Respiratory breath sounds equal bilaterally, normal respiratory effort and clear to auscultation bilaterally Cardiovascular normal heart rate noted, regular rhythm noted, no murmur and peripheral pulses 2+ throughout Gastrointestinal abdomen normal to inspection, abdomen soft to palpation, nontender to palpation, nontender to percussion, nondistended, no hepatosplenomegaly, no pulsatile mass and no hernia Genitourinary no CVA tenderness Extremities normal to inspection Neurology no focal motor deficit noted Psychiatry mental status grossly normal, oriented x3, thought process normal, cooperative and affect normal Skin skin color normal Psoriatic rash lower extremities
[2024-05-15] MEDS: hydrALAZINE INJ 20 MG/ML VIAL IVP PRN (15:11)
[2024-05-15] MEDS ORDERED: PROCHLORPERAZINE 10 MG/2 ML VIAL IVP PRN (16:46)
--- NOTE | 2024-05-15 17:47 | PROVIDER PROGRESS NOTE ---
Progress Note Progress Note Progress Note: General Surgery Progress Note S: Feels somewhat fatigued; mild back pain. No abdominal discomfort. No passage of stool or flatus O: VSS, afeb; abd soft; NGT vent closed which is probably why there has been no NGT output since insertion - corrected. SB challenge study at 2 hours with contrast in small bowel. No evidence of flow into right colon at this time A: SBO vs ileus - Image study on-going. No clinical evidence of ischemic or perforated bowel P: Continue current management; Re-evaluate in morning. Bigg Mar MD, FACS General Surgery Service
[2024-05-15] MEDS: DIATR MEGLU/DIATRIZOATE SODIUM 120 ML BOTTLE PO ONE (18:44)
[2024-05-15 20:30] LABS: PHOSPHORUS 2.7 mg/dL (2.5-5.0); POTASSIUM 3.3 mmol/L (3.5-4.5)
--- NOTE | 2024-05-15 20:32 | XRAY Report ---
PROCEDURE: XR SBFT Challenge Panel INDICATIONS: SBO, Partial vs complete COMPARISON: Correlation is made with CT, 05/14/2024 FINDINGS: Oral contrast was given. The majority of the oral contrast can be seen within the stomach and the proximal small bowel. The sm all bowel loops demonstrate generalized thickening, measuring 4 cm distally. On the final image, there is contrast seen within the distal small bowel loops, yet not frankly reach ing the colon. IMPRESSION: On these images, contrast can be seen within dilated small bowel loops, yet not frankly within the co bonilla. Continued small bowel obstruction is suspected. If clinically appropriate, please consider a follow-up image to determine whether the contrast has ma de it into the colon. Reviewed by: Unruly Childers MD on 05/15/2024 7:31 PM [facility] Approved by: Unruly Childers MD on 05/15/2024 7:31 PM [facility] Station ID: [id number]
[2024-05-15] MEDS: POTASSIUM CHLOR 10 MEQ/100 ML 10 MEQ/100 ML BAG IV SCH (23:32)
--- NOTE | 2024-05-16 00:40 | XRAY Report ---
PROCEDURE: XR No-Charge 1V Abdomen INDICATIONS: SBO, Partial vs complete TECHNIQUE: 1 view of the abdomen were acquired. COMPARISON: Plain films 05/15/[address] dated 06/03/2024 FINDINGS: Surgical changes and devices: To the gastric tube can be seen within the mid stomach. Bowel: There is oral contrast again seen within dilated small bowel loops. No definite contrast is se en within the colon. Soft tissues: No masses; visualized solid organ contours appear normal in size. No suspicious abdom inal calcifications. Bones: No suspicious bony abnormalities. Age-appropriate degenerative changes are seen. IMPRESSION: Contrast seen within small bowel loops, yet not definitely within the colon. These imaging findings a re consistent with small bowel obstruction. Reviewed by: Unruly Childers MD on 05/15/2024 11:39 PM [place] Approved by: Unruly Childers MD on 05/15/2024 11:39 PM [facility] Station ID: [id number]
[2024-05-16 05:11] LABS: HGB - HEMOGLOBIN 14.2 g/dL (12.0-16.0); MEAN CORPUSCULAR HEMOGLOBIN 28.1 pg (27.0-31.0); MEAN CORPUSCULAR HGB CONC 30.9 g/dL (32.0-36.0); MEAN CORPUSCULAR VOLUME 91.1 fL (81.0-99.0); MEAN PLATELET VOLUME 9.8 fL (7.9-10.8); RED BLOOD COUNT 5.05 10^6/uL (4.20-5.40); RED CELL DISTRIBUTION WIDTH 14.7 % (12.0-15.0); WHITE BLOOD COUNT 12.5 x10^3/uL (4.8-10.8)
[2024-05-16 05:17] LABS: CALCIUM, IONIZED 1.19 mmol/L (1.15-1.33); VBG PH 7.429 (7.31-7.41)
[2024-05-16 05:30] LABS: CALCIUM 10.2 mg/dL (8.5-10.3); CREATININE 0.4 mg/dL (0.6-1.3); MAGNESIUM 2.2 mg/dL (1.7-2.3); POTASSIUM 3.7 mmol/L (3.5-4.5)
[2024-05-16] MEDS: POTASSIUM CHLOR 10 MEQ/100 ML 10 MEQ/100 ML BAG IV SCH (08:11)
--- NOTE | 2024-05-16 08:51 | PROVIDER PROGRESS NOTE ---
Progress Note Progress Note Progress Note: General Surgery Progress Note Hospital Day # 2 - SBO vs ileus Code Status: Full ASSESSMENT: 1) Still no bowel motion or flatus. No clear evidence of contrast in colon as of 399 today. The tachycardia and hypertension may relate to the continued bowel issue and the leukocytosis is of concern. PLAN: 1) If the 1100 KUB does not clearly demonstrate contrast in the right colon I will recommend exploratory laparotomy this afternoon. <><><><><> PERTINENT INTERVAL ISSUES: None S: Comfortable; No abdominal pain but she is difficult to read. Denies flatus or stool from the rectum. No further emesis with corrected NGT vent OBJECTIVE: I/O: I/O 2,678/1,978 (NGT 700) VS: BP 165/78; P 104; RR 20; T 36.8 EXAMINATION: MENTAL STATUS: AAO; Comfortable; No complaints EYES: Pupils equal, round and reactive to light, sclera anicteric, EARS, NOSE, MOUTH, THROAT: Normal hearing, Oral mucous membranes moist and without lesions; NGT in place and functional NECK: No crepitus, lymphadenopathy, or thyromegaly LUNGS: Clear to auscultation without wheezing; No use of accessory muscles to breathe CARDIOVASCULAR: Heart-NSR without murmurs; ABD: Soft, non-tender, Tympanic percussion note in epigastric region but no peritoneal signs and no palpable mass; Absent BS EXTREMITIES: No clubbing, cyanosis, infections SKIN: Anicteric; No rashes, lesions, ulcerations LABS: WBC 12.5; H/H 14.2/46.0; Na 142; K 3.7; Cr 0.4; Glu 112; Ca 10.2; Mg s.s; Phos 2.7 CULTURES: N/A IMAGING: Small Bowel Challenge Study - Progression of contrast into more distal small bowel but as of 399, there is no clear evidence of contrast in the right colon All images were personally reviewed by me for this encounter. ANTIMICROBIALS: Ceftriaxone (cystitis) PAIN CONTROL: None VTEP: Chemical: None Mechanical: SCD Bigg Mar MD, FACS General Surgery Service
--- NOTE | 2024-05-16 09:08 | PROVIDER PROGRESS NOTE ---
Subjective Subjective Subjective: Patient has some abdominal pain in her epigastric region as well as her right lower quadrant. The epigastric pain is new for her. She describes it as a soreness. She had some nausea and vomiting when the NG tube was clamped yesterday to complete the small bowel follow through study. At this time, she has no fevers, chills, shortness of breath. Dr. Mar, general surgery, was spoken with this morning - plan is likely O.R. this morning after further independent review of images. This was also relayed to the patient who is aware. Current Medications Current Medications Current Medications: Current Medications Generic Name Dose Route Start Last Admin Trade Name Freq PRN Reason Stop Dose Admin Hydralazine HCl 10 mg 05/15/24 15:02 05/15/24 15:11 Hydralazine Inj 20 Mg/Ml Vial IVP 10 mg DAILY PRN Administration SBP> or= 160 OR DBP> or= 110 Sodium Chloride 1,000 mls @ 100 mls/hr 05/14/24 22:00 05/16/24 01:32 Normal Saline 0.9% IV 100 mls/hr .Q10H ONEL Administration Ceftriaxone Sodium 1 gm/ 100 mls @ 200 mls/hr 05/15/24 09:00 05/16/24 08:41 Sodium Chloride IV Infused DAILY ONEL Infusion Potassium Chloride 10 meq in 100 mls @ 100 mls/hr 05/16/24 08:00 05/16/24 08:11 Potassium Chloride IV 05/16/24 09:59 100 mls/hr Q1H ONEL Administration Protocol Ondansetron HCl 4 mg 05/14/24 21:52 Ondansetron 4 Mg/2 Ml Vial IVP Q6HR PRN Nausea / Vomiting Prochlorperazine Edisylate 10 mg 05/15/24 16:46 Prochlorperazine 10 Mg/2 Ml Vial IVP Q6HR PRN Nausea / Vomiting Sodium Chloride 10 ml 05/15/24 01:00 05/16/24 08:12 Sodium Chloride Flush 0.9% 10 Ml Syringe IVP 10 ml 0100,0900,1700 ONEL Administration Sodium Chloride 10 ml 05/14/24 21:52 Sodium Chloride Flush 0.9% 10 Ml Syringe IVP PRN PRN NEEDED PER PROVIDER ORDERS Objective Vital Signs/Intake & Output Reviewed Vital Signs: Yes Vital Signs: Vital Signs x48h Temp Pulse Resp BP Pulse Ox O2 Flow Rate 05/16/24 09:00 104 H 18 152/76 H 92 05/16/24 08:00 104 H 20 165/78 H 93 05/16/24 07:00 110 H 17 162/79 H 92 2 05/16/24 06:00 93 H 18 159/70 H 96 2 05/16/24 05:00 87 15 157/76 H 98 2 05/16/24 04:00 98.2 F 93 H 20 156/79 H 97 2 05/16/24 03:00 94 H 19 151/64 H 98 2 05/16/24 02:00 102 H 26 H 148/64 H 97 2 Intake & Output: Intake & Output 05/14/24 05/15/24 05/16/24 05/17/24 05:59 05:59 05:59 05:59 Intake Total 1000 / 1000 3563 / 3563 100 / 100 Output Total 0 / 0 700 / 700 0 / 0 Balance 1000 / 1000 2863 / 2863 100 / 100 Weight (kg) 65 kg 65.5 kg Objective General Appearance: positive No acute distress and Alert; negative Anxious Eyes Bilateral: positive Normal inspection, PERRL and EOMI ENT: positive ENT inspection nml, Pharynx nml and No signs of dehydration Neck: positive Nml inspection, Thyroid nml and No JVD Respiratory: positive Chest non-tender, No respiratory distress and Breath sounds nml; negative Wheezes, Rales or Rhonchi Cardiovascular: positive Regular rate & rhythm, No murmur and Tachycardia Abdomen: positive No distention and Tenderness (mild tenderness to palpation in RLQ and epigastric region); negative Guarding, Rebound, Hepatomegaly or Splenomegaly Back: positive Nml inspection; negative CVA tenderness (R) or CVA tenderness (L) Skin: positive Color nml, No rash, Warm and Dry Extremities: positive Non-tender, Full ROM, Nml appearance and No pedal edema Neurologic/Psychiatric: positive Oriented x3, CN's nml (2-12), Motor nml and Mood/affect nml Lab Results 05/16/24 05:01 05/16/24 05:01 Other Labs: Lab Results x24hrs 05/16/24 05/15/24 Range/Units 05:01 20:07 WBC 12.5 H (4.8-10.8) x10^3/uL RBC 5.05 (4.20-5.40) 10^6/uL Hgb 14.2 (12.0-16.0) g/dL Hct 46.0 (37.0-47.0) % MCV 91.1 (81.0-99.0) fL MCH 28.1 (27.0-31.0) pg MCHC 30.9 L (32.0-36.0) g/dL RDW 14.7 (12.0-15.0) % Plt Count 290 (130-450) 10^3/uL MPV 9.8 (7.9-10.8) fL VBG pH 7.429 H (7.31-7.41) Ionized Calcium 1.19 (1.15-1.33) mmol/L Sodium 142 (135-145) mmol/L Potassium 3.7 3.3 L (3.5-4.5) mmol/L Chloride 110 (101-111) mmol/L Carbon Dioxide 26 (21-32) mmol/L Anion Gap 6.0 (6-13) BUN 16 (6-20) mg/dL Creatinine 0.4 L (0.6-1.3) mg/dL Estimated GFR (MDRD) 153 (>89) Glucose 112 H (74-104) mg/dL Calcium 10.2 (8.5-10.3) mg/dL Phosphorus 2.7 2.7 (2.5-5.0) mg/dL Magnesium 2.2 (1.7-2.3) mg/dL Diagnostic Imaging Diagnostic Imaging Results: positive Final report reviewed ABX Reporting Has patient been on IV antibiotics over the past 48 hours?: Yes Assessment/Plan Problem List (1) SBO (small bowel obstruction): Impression: Patient presented with nausea, vomiting, right-sided abdominal pain. CT abdomen/pelvis shows multiple fluid-filled dilated loops of small bowel measuring up to 3.6 cm with no definite transition point. Few nondilated loops in the right pelvis. Small bowel follow through study shows contrast in small bowel indicative of obstruction. NG tube placed. Zofran for nausea. Continue IV fluids, normal saline at 100 cc/h. General Surgery consulted, appreciate recommendations - spoken with this morning, likely plan to go to OR this morning. (2) Leukocytosis, unspecified: Impression: Likely reactive to above. Continue to monitor. Qualifiers: Leukocytosis type: unspecified Qualified Code(s): D72.829 - Elevated white blood cell count, unspecified (3) Hypokalemia: Impression: Resolved. Due to decreased p.o. intake, will replete as necessary. (4) Hypercalcemia: Impression: Runs on the higher side; previous records reviewed from as far back as 2015, and patient always has had calcium greater than 9-10. She does endorse taking supplementation, and her external records show that she takes calcium supplements every day. Advised to stop at this time. She states that she been taking this for over 30 years. Acute hypercalcemia of 12 did resolve with IV fluids. This morning, it is 10.3. PTH mildly elevated. Would recommend follow-up with endocrinology in the outpatient setting for further workup. (5) Urinary tract infection: Impression: Patient does not have any symptoms at this time. Did have some urinary frequency prior to admission. Continue 3 days of Rocephin. Qualifiers: Hematuria presence: without hematuria Urinary tract infection type: s ite unspecified Qualified Code(s): N39.0 - Urinary tract infection, site not specified (6) Hypertension: Impression: Patient is strict n.p.o. at this time, including medications. Hold losartan at this time. IV hydralazine ordered as needed. Qualifiers: Hypertension type: unspecified Qualified Code(s): I10 - Essential (primary) hypertension (7) Psoriasis: Impression: Hold all oral medications, continue Otezla 30 mg twice daily when able for psoriasis.
--- NOTE | 2024-05-16 12:08 | PROVIDER PROGRESS NOTE ---
Progress Note Progress Note Progress Note: General Surgery Preop Note Imelda has not passed flatus or stool from the rectum. She remains bloated and now has cramping abdominal pain. She is slightly tachycardic and hypertensive. Her abdomen is more distended than this morning with some tenderness to palpation but no peritoneal signs. There has been minimal additional output from the NGT. Her WBC was elevated this morning. The 1130 KUB does not show clear evidence of progression of contrast into the colon. The small bowel seems somewhat more distended on this most recent image study to my interpretation. I believe Imelda has either a complete or a very high grade small bowel obstruc tion. She has failed medical therapy and therefore operative intervention is indicated. I have recommended to the patient and her that we proceed with exploratory laparotomy. Consent Imelda and her have been counseled for the procedure (exploratory laparotomy to resolve the bowel obstruction), it's indications, risks, benefits and expected outcome as well as alternative therapies. We specifically discussed risks associated with anesthesia, bleeding, infection, injury to surrounding structures which may require additional surgery, and the possible need for conversion to an open procedure. We also discussed the possible need for a blood transfusion with its risks and benefits. Imelda and her understand, agree, and consent to the proposed operative strategy and requests that we proceed with the procedure as outlined in our discussion. Bigg Mar MD, [facility] General Surgery Service
--- NOTE | 2024-05-16 12:35 | XRAY Report ---
PROCEDURE: XR No-Charge 1V Abdomen INDICATIONS: SBO, Partial vs complete TECHNIQUE: 1 view of the abdomen were acquired. COMPARISON: None. FINDINGS: Gastrografin remains within dilated small bowel loops without evidence of contrast in the colon or re ctum. Decreased osseous mineralization present. IMPRESSION: Small bowel obstruction. No evidence of enteric contrast in the colon Reviewed by: Nick Whitehead MD on 05/16/2024 11:33 AM [facility] Approved by: Nick Whitehead MD on 05/16/2024 11:33 AM [place] Station ID: [id number]
[2024-05-16] MEDS ORDERED: LIDOCAINE-PF 2% 10 ML AMP SUBQ ONE (12:45)
[2024-05-16] MEDS ORDERED: PROPOFOL 200 MG/20 ML VIAL IVP ONE (12:45)
[2024-05-16] MEDS ORDERED: ROCURONIUM 50 MG/5 ML VIAL ONE (12:46)
[2024-05-16] MEDS ORDERED: ONDANSETRON 4 MG/2 ML VIAL ONE (12:46)
[2024-05-16] MEDS ORDERED: BUPIVACAINE 0.5% PF 10 ML VIAL ONE (12:50)
[2024-05-16] MEDS ORDERED: LIDOCAINE 1%-EPI 1:100000 20 ML MDV ONE (12:50)
[2024-05-16] MEDS ORDERED: fentaNYL 100 MCG/2 ML VIAL ONE (13:31)
[2024-05-16] MEDS ORDERED: DEXAMETHASONE 10 MG/ML VIAL ONE (14:06)
[2024-05-16] MEDS ORDERED: HYDROmorphone 1 MG/ML CARPUJECT ONE (14:15)
[2024-05-16] MEDS ORDERED: ONDANSETRON 4 MG/2 ML VIAL IVP PRN (14:30)
[2024-05-16] MEDS ORDERED: ePHEDrine 50 MG/ML VIAL IVP PRN (14:30)
[2024-05-16] MEDS ORDERED: MORPHINE 2 MG/ML CARPUJECT IVP PRN (14:30)
[2024-05-16] MEDS ORDERED: NALOXONE 0.4 MG/ML VIAL IVP PRN (14:30)
[2024-05-16] MEDS ORDERED: fentaNYL 100 MCG/2 ML VIAL IVP PRN (14:30)
[2024-05-16] MEDS ORDERED: ATROPINE ABBOJECT 1 MG/10 ML SYRINGE IVP PRN (14:30)
[2024-05-16] MEDS ORDERED: HYDROmorphone 0.5 MG/0.5 ML SYRINGE IVP PRN (14:30)
--- NOTE | 2024-05-16 14:32 | ANESTHESIA PROCEDURE NOTE ---
Pre-Anesthesia VS, & Labs Diagnosis Surgical Diagnosis:: SBO Procedure Procedure: exploratory laparotomy Vitals Vital Signs: Temp Pulse Resp BP Pulse Ox O2 Flow Rate 37.3 C 105 H 20 154/82 H 91 L 2 05/16/24 11:00 05/16/24 13:00 05/16/24 13:00 05/16/24 13:00 05/16/24 13:00 05/16/24 08:00 NPO NPO: >8 hours Is Patient ?: No Lab Results Current Lab Results: Laboratory Tests 05/16/24 12:31: Potassium 3.8 05/16/24 12:25: POC Whole Bld Glucose 119 05/16/24 05:01: WBC 12.5 H, RBC 5.05, Hgb 14.2, Hct 46.0, MCV 91.1, MCH 28.1, M CHC 30.9 L, RDW 14.7, Plt Count 290, MPV 9.8, VBG pH 7.429 H, Ionized Calcium 1.19, Sodium 142, Potassium 3.7, Chloride 110, Carbon Dioxide 26, Anion Gap 6.0, BUN 16, Creatinine 0.4 L, Estimated GFR (MDRD) 153, Glucose 112 H, Calcium 10.2, Phosphorus 2.7, Magnesium 2.2 05/15/24 20:07: Potassium 3.3 L, Phosphorus 2.7 05/15/24 04:28: WBC 9.4, RBC 4.59, Hgb 13.4, Hct 40.8, MCV 88.9, MCH 29.2, MCHC 32.8, RDW 14.6, Plt Count 278, MPV 10.0, Neut # (Auto) Not Reportable, Lymph # (Auto) Not Reportable, Bradley # (Auto) Not Reportable, Eos # (Auto) Not Reportable, Baso # (Auto) Not Reportable, Absolute Nucleated RBC Not Reportable, Total Counted 100, Band Neuts % (Manual) 0, Abnorm Lymph % (Manual) 0, M yelocytes % 1 H, Nucleated RBC % Not Reportable, Neutrophils # (Manual) 6.5, L ymphocytes # (Manual) 0.9 L, Monocytes # (Manual) 1.9 H, Eosinophils # (Manual) 0.0, Basophils # (Manual) 0.0, Differential Comment MANUAL DIFFERENTIAL, WBC Morphology NORMAL APPEARANCE, Platelet Estimate NORMAL (130-450,000), Platelet Morphology NORMAL APPEARANCE, RBC Morph Micro Appear NORMAL APPEARANCE, VBG pH 7.409, Ionized Calcium 1.28, Sodium 141, Potassium 3.3 L, Chloride 107, Carbon Dioxide 28, Anion Gap 6.0, BUN 15, Creatinine 0.4 L, Estimated GFR (MDRD) 153, G lucose 113 H, Calcium 10.3, Phosphorus 2.3 L, Magnesium 2.2, Total Bilirubin 1.0, AST 17, ALT 11, Alkaline Phosphatase 52, Total Protein 5.9 L, Albumin 3.9, Globulin 2.0 L, Albumin/Globulin Ratio 2.0 05/14/24 19:42: WBC 11.5 H, RBC 5.16, Hgb 14.8, Hct 45.5, MCV 88.2, MCH 28.7, MCHC 32.5, RDW 14.4, Plt Count 317, MPV 9.9, Neut # (Auto) Not Reportable, Lymph # (Auto) Not Reportable, Bradley # (Auto) Not Reportable, Eos # (Auto) Not Reportable, Baso # (Auto) Not Reportable, Absolute Nucleated RBC Not Reportable, Total Counted 100, Band Neuts % (Manual) 1, Abnorm Lymph % (Manual) 0, Nucleated RBC % Not Reportable, Neutrophils # (Manual) 9.0 H, Lymphocytes # (Manual) 0.7 L , Monocytes # (Manual) 1.7 H, Eosinophils # (Manual) 0.0, Basophils # (Manual) 0.1, Differential Comment MANUAL DIFFERENTIAL, Platelet Estimate NORMAL (130- 450,000), Platelet Morphology NORMAL APPEARANCE, RBC Morph Micro Appear NORMAL APPEARANCE, Sodium 141, Potassium 3.5, Chloride 105, Carbon Dioxide 29, Anion Gap 7.0, BUN 23 H, Creatinine 0.5 L, Estimated GFR (MDRD) 118, Glucose 132 H, C alcium 12.0 H*, Phosphorus 2.9, Total Bilirubin 0.9, AST 19, ALT 13, Alkaline Phosphatase 63, Total Protein 7.2, Albumin 4.7, Globulin 2.5, Albumin/Globulin Ratio 1.9, Lipase 15, Total Intact PTH 93 H 05/16/24 05:01 05/16/24 12:31 Meds/Allgy Home Medications Ambulatory Orders Medication Instructions Recorded Confirmed Flaxseed Oil 1,400 mg PO DAILY 07/11/15 05/15/24 Ocuvite 1 cap PO DAILY 07/11/15 05/15/24 Red Rice Yeast 2,400 mg PO DAILY 07/11/15 05/15/24 ascorbic acid (vitamin C) 1,000 mg 500 mg PO DAILY 07/11/15 05/15/24 chewable tablet calcium 333 mg 1 ea PO DAILY 07/11/15 05/15/24 (carbonate)-magnesium 133 mg-zinc 5 mg (sulfate) tablet cholecalciferol (vitamin D3) 25 1,000 unit PO DAILY 07/11/15 05/15/24 mcg (1,000 unit) capsule (Vitamin D3) glucosamine 467 mg-chondroitin msm 1 ea PO DAILY 07/11/15 05/15/24 no.6 438 mg-manganes 0.7 mg capsule omeprazole 20 mg capsule,delayed 20 mg PO DAILY 07/11/15 05/15/24 release (Prilosec) apremilast 30 mg tablet (Otezla) 30 mg ORAL BID 08/07/23 05/15/24 losartan 100 mg tablet 100 mg PO DAILY 05/15/24 05/15/24 Allergies Allergies Allergy/AdvReac Type Severity Reaction Status Date / Time lisinopril AdvReac Unknown Verified 05/14/24 18:57 [facility] Medical History Medical History (Updated 05/15/24 @ 08:50 by Monique Bartholomew MD) Ganglion cyst (08/07/09) Surgical History Surgical History (Updated 05/15/24 @ 12:16 by Bigg Mar MD) History of bladder suspension procedure H/O vaginal hysterectomy Social History Social History Smoking Status: Never smoker If you are a former smoker, when did you quit? (Date/Year): never smoked Do you dip or chew tobacco?: No Do you vape?: No Patient requests smoking cessation consult: No Initiate information on smoking cessation: No Level: Independent Home Mobility Equipment: Wheeled walker Do you feel safe in your home environment?: Yes Suffered physical, verbal, emotional, or financial abuse?: No History of Abuse: No Substance Use: denies use POLST POLST Status: Full Code Anesthesia Exam (Expanded) Exam General: Alert, Oriented x3 and Cooperative Dental: WNL Mouth Openin Fingerbreadth Neck Mobility: Normal Mallampati classification: II Thyromental Distance: 4-6 cm Respiratory: Lungs clear Cardiovascular: Regular rate Plan Problem List (1) SBO (small bowel obstruction): (2) Leukocytosis, unspecified: Qualifiers: Leukocytosis type: unspecified Qualified Code(s): D72.829 - Elevated white blood cell count, unspecified (3) Hypokalemia: (4) Hypercalcemia: (5) Urinary tract infection: Qualifiers: Urinary tract infection type: site unspecified Hematuria presence: w ithout hematuria Qualified Code(s): N39.0 - Urinary tract infection, site not specified (6) Hypertension: Qualifiers: Hypertension type: unspecified Qualified Code(s): I10 - Essential (primary) hypertension (7) Psoriasis: (8) Ganglion cyst: (9) History of bladder suspension procedure: (10) H/O vaginal hysterectomy: (11) Hx SBO: (12) Hematuria: (13) Abdominal pain, right lower quadrant: (14) Fracture of right distal radius: (15) Finger laceration: Qualifiers: Damage to nail status: unspecified Encounter type: initial encounter F maribel: index finger Foreign body presence: unspecified Laterality: right Q ualified Code(s): S61.210A - Laceration without foreign body of right index finger without damage to nail, initial encounter Plan Anesthesia Type: General Consent for Procedure(s) Verified and Reviewed: Yes Code Status: Attempt Resuscitation ASA Classification ASA classification: 2-Mild systemic disease Is this case an emergency?: No
[2024-05-16] MEDS ORDERED: SUGAMMADEX 200 MG/2 ML VIAL IVP ONE (14:33)
[2024-05-16] MEDS ORDERED: KETOROLAC 30 MG/ML VIAL ONE (14:36)
--- NOTE | 2024-05-16 15:01 | OPERATIVE REPORT ---
Operative Report General Admit Date: 05/14/24 Procedure Data: Operation Date: 05/16/24 13:00 Proposed Procedures p Exploratory Laparotomy(Not Applicable) - Bigg Mar MD Actual Procedures p Exploratory Laparotomy, LYSIS OF ADHESIONS(Not Applicable) - Bigg Mar MD Pre-Op Diagnosis: BOWEL OBSTRUCTION Anesthesia Type General Case Times Procedure Start: 05/16/24 13:49 Procedure End: 05/16/24 14:35 Time out: 05/16/24 13:48 Pre-Op Diagnosis: Small bowel obstruction Post Op Diagnosis: Complete small bowel obstruction due to an adhesion Other Other Information/Narrative: PROCEDURE DATE: 05/16/24 PREOPERATIVE DIAGNOSIS: Imelda is an 79 year old female who has clinical, CT, Small bowel contrast study, and lab findings consistent with a small bowel obstruction. POSTOPERATIVE DIAGNOSIS: Complete small bowel obstruction due to an adhesion NAME OF PROCEDURE: Exploratory laparotomy, adhesiolysis SURGEON: Bigg Mar MD, FACS CHIEF OPHTHALMIC TECHNICIAN: Ski Molder ANESTHESIA: General endotracheal. ESTIMATED BLOOD LOSS: 10 mL. DRAINS: NGT SPECIMEN: Peritoneal fluid cultures; adhesion FINDINGS: A single adhesion causing a distal small bowel obstruction; Non- purulent ascites; Distended small bowel proximal to the obstructing adhesion. No evidence of bowel ischemia. COMPLICATIONS: None DESCRIPTION OF OPERATION: After consent for the procedure was obtained, the patient was brought to the operating room and placed into the the supine position. General endotracheal anesthesia was then administered. Venous compression stockings were placed on the lower extremities and a desai catheter was placed into the bladder. A surgical time-out was performed indicating the patient and the procedure to be performed. The abdomen was prepped with alcohol- free chloroprep, and draped in a sterile fashion. A midline nicole-umbilical incision was used to gain exposure of the abdominal cavity. Ascites was identified, cultured, and aspirated from the abdominal cavity. The small bowel was very dilated and contained air and fluid. The cecum was identified along with the terminal ileum. The terminal ileum was followed proximally. A single adhesion from the pelvic wall to an adjacent segment of small bowel was the cause of obstruction at 15 cm from the ileocecal junction. The adhesion was excised and sent for pathology. Removal of the adhesion eliminate the bowel obstruction. The small bowel at 15 cm was not strictured or ischemic from the obstructing adhesion, therefore a small bowel excision was unnecessary. The small bowel was then inspected from the ileocecal junction to the ligament of Treitz. No other abnormalities were identified during the small bowel evaluation. I asked anesthesia to remove the 14F NGT and replace it with a 18F NGT. The tip of the new NGT was confirmed to be within the gastric lumen. I then inspected the large bowel in it's entirety and other than a diminished caliber of the left and sigmoid colon, there were no palpable intra-luminal lesions. The gallbladder appeared normal. The uterus was absent. The urinary bladder was normal. I gently milked small bowel contents proximally into the stomach and distally into the cecum to permit less tension on the fascial closure. The small bowel was returned into the peritoneal cavity and covered with omentum. The abdominal cavity was then irrigated with 1 liter of warm, sterile saline. The irrigant was aspirated. A search for sponges, packs, needles and instruments was performed. None were identified in the peritoneal cavity. The sponge, pack, needle, and instrument counts were relayed to me as correct. The linea alba was then closed with a running looped #1 PDS suture. The subcutaneous tissue was infiltrated with 30 ml of Marcaine. The skin was approximated with skin brunilda and the wound dressed with 4 x 4 gauze and tape over Xeroform gauze. The patient tolerated the procedure well and was brought to the ICU extubated and with stable vital signs. []The patient's was notified of the operative findings and plans for management.
[2024-05-16] MEDS: ACETAMINOPHEN 1,000 MG/100 ML 1,000 MG/100 ML BAG IV PRN (15:17)
--- NOTE | 2024-05-16 16:29 | ANESTHESIA POST OP EVALUATION ---
Anesthesia Post Eval Post Anesthesia Eval Vitals: Last Vital Signs Temp 36.5 C 05/16/24 15:30 Pulse 102 H 05/16/24 16:00 Resp 17 05/16/24 16:00 BP 156/66 H 05/16/24 16:00 Pulse Ox 95 05/16/24 16:00 O2 Flow Rate 2.5 05/16/24 16:00 CV Function Including HR & BP: Stable Pain Control: Satisfactory Nausea & Vomiting: Negative Mental Status: Baseline Respiratory Status: Airway Patent Hydration Status: Satisfactory Anesthesia Complications: None
[2024-05-16] MEDS: ceFAZolin (2G) 2 GM in SODIUM CHLORIDE 0.9% MINIBAG 100 ML IV ONE (16:46)
[2024-05-16] MEDS ORDERED: METOPROLOL 5 MG/5 ML VIAL IVP ONE ×2 (17:42→18:12)
[2024-05-16] MEDS ORDERED: METOPROLOL 5 MG/5 ML VIAL IVP SCH (17:45)
[2024-05-16] MEDS: METOPROLOL 5 MG/5 ML VIAL IVP SCH ×2 (17:47→18:37)
[2024-05-16] MEDS: SODIUM CHLORIDE 0.9% 1,000 ML IV ONE (18:23)
[2024-05-16] MEDS: LACTATED RINGERS 1,000 ML IV SCH (18:25)
[2024-05-16] MEDS ORDERED: diltiaZEM INJ 5 MG/ML VIAL ONE (18:36)
[2024-05-16] MEDS: diltiaZEM INJ 125 MG in DEXTROSE 5% 100 ML IV SCH (18:51)
[2024-05-16] MEDS: KETOROLAC 15 MG/ML VIAL IVP SCH (20:21)
[2024-05-16] MEDS: HEPARIN 5,000 UNIT/ML VIAL SUBQ SCH (20:28)
[2024-05-16] MEDS ORDERED: DEXTROSE 5% 100 ML IV ONE ×3 (21:54→22:00)
[2024-05-17] MEDS: METOPROLOL 5 MG/5 ML VIAL IVP SCH (00:29)
[2024-05-17] MEDS: SODIUM CHLORIDE FLUSH 0.9% 10 ML SYRINGE IVP PRN (00:43)
[2024-05-17 04:29] LABS: HCT - HEMATOCRIT 38.7 % (37.0-47.0); MEAN CORPUSCULAR HEMOGLOBIN 28.2 pg (27.0-31.0); MEAN CORPUSCULAR VOLUME 91.1 fL (81.0-99.0); MEAN PLATELET VOLUME 9.8 fL (7.9-10.8); RED BLOOD COUNT 4.25 10^6/uL (4.20-5.40); RED CELL DISTRIBUTION WIDTH 14.9 % (12.0-15.0); WHITE BLOOD COUNT 15.7 x10^3/uL (4.8-10.8)
[2024-05-17 04:48] LABS: CREATININE 0.4 mg/dL (0.6-1.3); POTASSIUM 3.5 mmol/L (3.5-4.5)
[2024-05-17] MEDS: POTASSIUM CHLOR 10 MEQ/100 ML 10 MEQ/100 ML BAG IV SCH ×2 (06:23→20:44)
--- NOTE | 2024-05-17 06:47 | PROVIDER PROGRESS NOTE ---
Progress Note Progress Note Progress Note: General Surgery Progress Note Hospital Day # 4 - SBO POD # 1, Exploratory laparotomy, lysis of adhesion Code Status: Full ASSESSMENT: 1) No immediate post-op issues except for transient atrial fibrillation yesterday which has resolved PLAN: 1) Continue NGT until passes flatus; May have ice chips and sips 2) Ambulate 3) VTEP to continue 4) Discharge planning <><><><><> PERTINENT INTERVAL ISSUES: Atrial fibrillation S: Feels good; No abdominal pain. No flatus or BM yet OBJECTIVE: I/O: 3,472/2,484 (NGT 100) VS: BP 111/62; P 115 EXAMINATION: MENTAL STATUS: AAO; Comfortable EYES: Pupils equal, round and reactive to light, sclera anicteric, EARS, NOSE, MOUTH, THROAT: Normal hearing, Oral mucous membranes moist and without lesions; NECK: No crepitus, lymphadenopathy, or thyromegaly LUNGS: Clear to auscultation without wheezing; No use of accessory muscles to breathe CARDIOVASCULAR: Heart-NSR without murmurs; ABD: Soft, non-tender, Incision dressing clean and dry; Few BS EXTREMITIES: No clubbing, cyanosis, infections SKIN: Anicteric; No rashes, lesions, ulcerations LABS: H&H 38.7/12.0; WBC 15.7; NA 144; K 3.5; Cr 0.4; Glu 124 CULTURES: Ascites - Pending IMAGING: None today ANTIMICROBIALS: Ceftriaxone (cystitis) PAIN CONTROL: Dilaudid IV prn, Ketorolac IV, Acetaminophen VTEP: Chemical: Heparin, 5,000 units SQ Q 12 hrs Mechanical: SCD Bigg Mar MD, FACS General Surgery Service
--- NOTE | 2024-05-17 09:08 | PROVIDER PROGRESS NOTE ---
Subjective Subjective Subjective: Patient states she has minimal abdominal pain around the incision site. She is sitting up in the chair. She was able to walk a few laps around the ICU yesterday. She denies any chest pain, fevers, chills, shortness of breath, palpitations. She is eager and ready to feel better and improve her mobility. Current Medications Current Medications Current Medications: Current Medications Generic Name Dose Route Start Last Admin Trade Name Freq PRN Reason Stop Dose Admin Heparin Sodium (Porcine) 5,000 unit 05/16/24 21:00 05/17/24 09:04 Heparin 5,000 Unit/Ml Vial SUBQ 5,000 unit BID ONEL Administration Hydralazine HCl 10 mg 05/15/24 15:02 05/16/24 15:16 Hydralazine Inj 20 Mg/Ml Vial IVP 10 mg DAILY PRN Administration SBP> or= 160 OR DBP> or= 110 Sodium Chloride 1,000 mls @ 100 mls/hr 05/14/24 22:00 05/17/24 05:28 Normal Saline 0.9% IV 100 mls/hr .Q10H ONEL Administration Ceftriaxone Sodium 1 gm/ 100 mls @ 200 mls/hr 05/15/24 09:00 05/17/24 08:34 Sodium Chloride IV 100 mls/hr DAILY ONEL Administration Acetaminophen 1,000 mg in 100 mls @ 400 mls/hr 05/16/24 09:19 05/16/24 15:45 Acetaminophen IV Infused Q6HR PRN Infusion Moderate Pain (Level 4-6) Diltiazem HCl 125 mg/ Dextrose 125 mls @ 5 mls/hr 05/16/24 19:00 05/17/24 00:22 IV 15 mg/hr .Q25H ONEL 15 mls/hr Administration Protocol 5 MG/HR Potassium Chloride 10 meq in 100 mls @ 100 mls/hr 05/17/24 06:00 05/17/24 09:03 Potassium Chloride IV 05/17/24 09:59 100 mls/hr Q1H ONEL Administration Protocol Ketorolac Tromethamine 15 mg 05/16/24 20:00 05/17/24 08:25 Ketorolac 15 Mg/Ml Vial IVP 05/21/24 19:59 15 mg Q6H ONEL Administration Metoprolol Tartrate 5 mg 05/17/24 00:00 05/17/24 05:38 Metoprolol 5 Mg/5 Ml Vial IVP Not Given Q6HR [facility] Ondansetron HCl 4 mg 05/14/24 21:52 Ondansetron 4 Mg/2 Ml Vial IVP Q6HR PRN Nausea / Vomiting Prochlorperazine Edisylate 10 mg 05/15/24 16:46 Prochlorperazine 10 Mg/2 Ml Vial IVP Q6HR PRN Nausea / Vomiting Sodium Chloride 10 ml 05/15/24 01:00 05/17/24 00:30 Sodium Chloride Flush 0.9% 10 Ml Syringe IVP Not Given 0100,0900,1700 [facility] Sodium Chloride 10 ml 05/14/24 21:52 05/17/24 00:43 Sodium Chloride Flush 0.9% 10 Ml Syringe IVP 10 ml PRN PRN Administration NEEDED PER PROVIDER ORDERS Sodium Phosphate 250 mg 05/17/24 09:00 Neutra-Phos 250 Mg Tablet NG 05/17/24 11:01 Q2H [facility] Protocol Objective Vital Signs/Intake & Output Reviewed Vital Signs: Yes Vital Signs: Vital Signs x48h Temp Pulse Pulse Resp BP BP Pulse Ox 05/17/24 08:00 96.8 F L 95 H 22 102/63 93 05/17/24 07:00 89 20 125/62 94 05/17/24 06:00 78 17 111/47 L 92 05/17/24 05:38 115 H 111/62 05/17/24 05:00 101 H 18 120/46 L 92 05/17/24 04:00 97 H 17 103/62 94 05/17/24 03:00 95 H 15 98/52 L 94 05/17/24 02:00 106 H 15 120/59 L 93 O2 Flow Rate 05/17/24 08:00 1 05/17/24 07:00 4 05/17/24 06:00 4 05/17/24 05:38 05/17/24 05:00 4 05/17/24 04:00 4 05/17/24 03:00 4 05/17/24 02:00 4 Intake & Output: Intake & Output 05/15/24 05/16/24 05/17/24 05/18/24 05:59 05:59 05:59 05:59 Intake Total 1000 / 1000 3563 / 3563 3472 / 3472 230 / 230 Output Total 0 / 0 700 / 700 988 / 988 70 / 70 Balance 1000 / 1000 2863 / 2863 2484 / 2484 160 / 160 Weight (kg) 65 kg 65.5 kg 73 kg Objective General Appearance: positive No acute distress and Alert; negative Anxious Eyes Bilateral: positive Normal inspection, PERRL and EOMI ENT: positive ENT inspection nml, Pharynx nml and No signs of dehydration Neck: positive Nml inspection, Thyroid nml and No JVD Respiratory: positive Chest non-tender, No respiratory distress and Breath sounds nml; negative Wheezes, Rales or Rhonchi Cardiovascular: positive Regular rate & rhythm, No murmur and Tachycardia Abdomen: positive No distention and Tenderness (mild tenderness to palpation in RLQ and epigastric region); negative Guarding, Rebound, Hepatomegaly or Splenomegaly Back: positive Nml inspection; negative CVA tenderness (R) or CVA tenderness (L) Skin: positive Color nml, No rash, Warm and Dry Extremities: positive Non-tender, Full ROM, Nml appearance and No pedal edema Neurologic/Psychiatric: positive Oriented x3, CN's nml (2-12), Motor nml and Mood/affect nml Lab Results 05/17/24 04:13 05/17/24 12:24 Other Labs: Lab Results x24hrs 05/17/24 05/17/24 05/17/24 Range/Units 06:35 04:13 00:13 WBC 15.7 H (4.8-10.8) x10^3/uL RBC 4.25 (4.20-5.40) 10^6/uL Hgb 12.0 (12.0-16.0) g/dL Hct 38.7 (37.0-47.0) % MCV 91.1 (81.0-99.0) fL MCH 28.2 (27.0-31.0) pg MCHC 31.0 L (32.0-36.0) g/dL RDW 14.9 (12.0-15.0) % Plt Count 280 (130-450) 10^3/uL MPV 9.8 (7.9-10.8) fL Sodium 144 (135-145) mmol/L Potassium 3.5 (3.5-4.5) mmol/L Chloride 114 H (101-111) mmol/L Carbon Dioxide 26 (21-32) mmol/L Anion Gap 4.0 L (6-13) BUN 19 (6-20) mg/dL Creatinine 0.4 L (0.6-1.3) mg/dL Estimated GFR (MDRD) 153 (>89) Glucose 124 H (74-104) mg/dL POC Whole Bld Glucose 101 126 (70-100) mg/dL Calcium 9.0 (8.5-10.3) mg/dL Phosphorus 2.4 L (2.5-5.0) mg/dL Magnesium 2.0 (1.7-2.3) mg/dL Troponin I High Sens (2.3-14.8) ng/L 05/16/24 05/16/24 05/16/24 Range/Units 18:51 18:43 12:31 WBC (4.8-10.8) x10^3/uL RBC (4.20-5.40) 10^6/uL Hgb (12.0-16.0) g/dL Hct (37.0-47.0) % MCV (81.0-99.0) fL MCH (27.0-31.0) pg MCHC (32.0-36.0) g/dL RDW (12.0-15.0) % Plt Count (130-450) 10^3/uL MPV (7.9-10.8) fL Sodium (135-145) mmol/L Potassium 3.8 (3.5-4.5) mmol/L Chloride (101-111) mmol/L Carbon Dioxide (21-32) mmol/L Anion Gap (6-13) BUN (6-20) mg/dL Creatinine (0.6-1.3) mg/dL Estimated GFR (MDRD) (>89) Glucose (74-104) mg/dL POC Whole Bld Glucose 115 (70-100) mg/dL Calcium (8.5-10.3) mg/dL Phosphorus (2.5-5.0) mg/dL Magnesium (1.7-2.3) mg/dL Troponin I High Sens 15.7 H* (2.3-14.8) ng/L 05/16/24 Range/Units 12:25 WBC (4.8-10.8) x10^3/uL RBC (4.20-5.40) 10^6/uL Hgb (12.0-16.0) g/dL Hct (37.0-47.0) % MCV (81.0-99.0) fL MCH (27.0-31.0) pg MCHC (32.0-36.0) g/dL RDW (12.0-15.0) % Plt Count (130-450) 10^3/uL MPV (7.9-10.8) fL Sodium (135-145) mmol/L Potassium (3.5-4.5) mmol/L Chloride (101-111) mmol/L Carbon Dioxide (21-32) mmol/L Anion Gap (6-13) BUN (6-20) mg/dL Creatinine (0.6-1.3) mg/dL Estimated GFR (MDRD) (>89) Glucose (74-104) mg/dL POC Whole Bld Glucose 119 (70-100) mg/dL Calcium (8.5-10.3) mg/dL Phosphorus (2.5-5.0) mg/dL Magnesium (1.7-2.3) mg/dL Troponin I High Sens (2.3-14.8) ng/L Diagnostic Imaging Diagnostic Imaging Results: positive Final report reviewed ABX Reporting Has patient been on IV antibiotics over the past 48 hours?: Yes Assessment/Plan Problem List (1) SBO (small bowel obstruction): Impression: Patient presented with nausea, vomiting, right-sided abdominal pain. CT abdomen/pelvis shows multiple fluid-filled dilated loops of small bowel measuring up to 3.6 cm with no definite transition point. Few nondilated loops in the right pelvis. Small bowel follow through study after the fact still showed contrast in small bowel indicative of obstruction. Went to the OR yesterday and had lysis of adhesions completed with general surgery. NG tube placed, still on LIS. Has not passed gas yet. Continue ice chips, Zofran for nausea. Continue IV fluids, normal saline at 100 cc/h. (2) New onset atrial fibrillation: Impression: Yesterday evening, patient had an episode of atrial fibrillation with RVR. She was started on a Cardizem drip. Today, she has converted back to normal sinus rhythm. Will wean off Cardizem drip, continue IV metoprolol. Will likely be discharged on oral metoprolol. [id number] score of 4, patient should be on anticoagulation. Spoke with general surgery, will hold off on starting for few days due to recent surgery. Patient was discovered to have a left bundle branch block prior to cataract surgery recently, and was sent to a fat purification worker. Advised to follow-up with the same fat purification worker. Echo ordered, pending. (3) Leukocytosis, unspecified: Impression: Likely reactive to above. Continue to monitor. Qualifiers: Leukocytosis type: unspecified Qualified Code(s): D72.829 - Elevated white blood cell count, unspecified (4) Hypokalemia: Impression: Resolved. Due to decreased p.o. intake, will replete as necessary. (5) Hypercalcemia: Impression: Runs on the higher side; previous records reviewed from as far back as 2015, and patient always has had calcium greater than 9-10. She does endorse taking supplementation, and her external records show that she takes calcium supplements every day. Advised to stop at this time. She states that she been taking this for over 30 years. Acute hypercalcemia of 12 did resolve with IV fluids. PTH mildly elevated. Would recommend follow-up with endocrinology in the outpatient setting for further workup. (6) Urinary tract infection: Impression: Patient does not have any symptoms at this time. Did have some urinary frequency prior to admission. Complete course of Rocephin. Qualifiers: Hematuria presence: without hematuria Urinary tract infection type: s ite unspecified Qualified Code(s): N39.0 - Urinary tract infection, site not specified (7) Hypertension: Impression: Patient is strict n.p.o. at this time, including medications. Hold losartan at this time. IV hydralazine ordered as needed. Qualifiers: Hypertension type: unspecified Qualified Code(s): I10 - Essential (primary) hypertension (8) Psoriasis: Impression: Hold all oral medications, continue Otezla 30 mg twice daily when able for psoriasis.
[2024-05-17] MEDS: NEUTRA-PHOS 250 MG TABLET NG SCH (09:16)
[2024-05-17] MEDS: POTASSIUM CHLORIDE 20 MEQ/15 ML UDC PO ONE (15:23)
--- NOTE | 2024-05-17 16:30 | PROVIDER PROGRESS NOTE ---
Progress Note Progress Note Progress Note: General Surgery Progress Note S: Progressing well; No abdominal pain. No chest pain or SOB; No flatus O: VSS - atrial fib resolved; Abdomen is soft, active BS; NGT output decreasing A: Satisfactory post-op course P: Leave NGT in tonight; ambulatory; ice chips/sips Bigg Mar MD, FACS General Surgery Service
[2024-05-18] MEDS: POTASSIUM CHLOR 10 MEQ/100 ML 10 MEQ/100 ML BAG IV SCH (03:00)
[2024-05-18 07:00] LABS: CALCIUM, IONIZED 1.25 mmol/L (1.15-1.33); VBG PH 7.358 (7.31-7.41)
[2024-05-18 07:09] LABS: CALCIUM 9.3 mg/dL (8.5-10.3); CREATININE 0.4 mg/dL (0.6-1.3); MAGNESIUM 2.1 mg/dL (1.7-2.3); PHOSPHORUS 1.8 mg/dL (2.5-5.0)
[2024-05-18 07:16] LABS: HCT - HEMATOCRIT 38.8 % (37.0-47.0); MEAN CORPUSCULAR HEMOGLOBIN 28.8 pg (27.0-31.0); MEAN CORPUSCULAR HGB CONC 30.9 g/dL (32.0-36.0); MEAN CORPUSCULAR VOLUME 93.3 fL (81.0-99.0); MEAN PLATELET VOLUME 10.1 fL (7.9-10.8); RED BLOOD COUNT 4.16 10^6/uL (4.20-5.40); RED CELL DISTRIBUTION WIDTH 14.9 % (12.0-15.0); WHITE BLOOD COUNT 7.7 x10^3/uL (4.8-10.8)
--- NOTE | 2024-05-18 07:56 | PROVIDER PROGRESS NOTE ---
Progress Note Progress Note Progress Note: General Surgery Progress Note Hospital Day # 5 - SBO POD # 2, Exploratory laparotomy, lysis of adhesion Code Status: Full ASSESSMENT: 1) Progressing well; awaiting return of lower GI function PLAN: 1) Clamp NGT; May have ice chips and sips 2) Ambulate 3) VTEP to continue 4) Discharge planning <><><><><> PERTINENT INTERVAL ISSUES: None S: Feels good; No abdominal pain. No flatus or BM yet; Ambulatory; Hungry OBJECTIVE: I/O: 3469/925 (NGT 150) VS: BP 137/68; P 76; RR 29 EXAMINATION: MENTAL STATUS: AAO; Comfortable EYES: Pupils equal, round and reactive to light, sclera anicteric, EARS, NOSE, MOUTH, THROAT: Normal hearing, Oral mucous membranes moist and without lesions; NGT in place LUNGS: Clear to auscultation without wheezing; No use of accessory muscles to breathe CARDIOVASCULAR: Heart-NSR without murmurs; ABD: Soft, non-tender, Incision dressing clean and dry; Active BS EXTREMITIES: No clubbing, cyanosis, infections SKIN: Anicteric; No rashes, lesions, ulcerations LABS: H&H 38.7/12.0; WBC 15.7; NA 144; K 3.5; Cr 0.4; Glu 124 CULTURES: Ascites - PreLim - NOS IMAGING: None today ANTIMICROBIALS: Ceftriaxone (cystitis) PAIN CONTROL: Dilaudid IV prn, Ketorolac IV, Acetaminophen VTEP: Chemical: Heparin, 5,000 units SQ Q 12 hrs Mechanical: SCD Bigg Mar MD, FACS General Surgery Service
[2024-05-18] MEDS: NEUTRA-PHOS 250 MG TABLET PO SCH (08:36)
[2024-05-18] MEDS: METOPROLOL SUCCINATE 25 MG TABLET PO SCH (10:21)
--- NOTE | 2024-05-18 15:43 | PROVIDER PROGRESS NOTE ---
Progress Note Progress Note Progress Note: General Surgery Progress Note S: No flatus but would like to have the NGT out and start liquids. The NGT has been clamped all morning. I checked the residual, it was zero and I removed the NGT. O: Abdomen is soft, slight distension, + BS. Midline wound inspected and without infection or ecchymosis. A fresh dressing was placed. A: Progressing well P: Now that NGT is out we will offer clear liquid diet and advance as tolerated. I advised that she progress slowly to avoid nausea and/or emesis. Bigg Mar MD, [facility] General Surgery Service
--- NOTE | 2024-05-18 18:22 | PROVIDER PROGRESS NOTE ---
Progress Note Progress Note Progress Note: May 18, 2024 6 PM I saw this patient earlier this morning and in the late afternoon. This morning her rate was controlled and she is off the diltiazem drip so I started on metoprolol. This afternoon pulses state control and sinus. General Surgery and I discussed the case. He will be assessing her to see if a small bowel follow-through is needed. She has not had any flatus. Minimal output out of the NG. He clamped at this morning. He then check residual this afternoon and he removed the NG tube. Exam: Blood pressure is 129/67, pulse is 77, temperature is 36.4, respiration 18. She is 94% on room air. On general exam she is a 5 foot 4 inch female at 71.5 kg. She looks younger than stated age. She appears fatigued. Alert and oriented to person, place, not necessarily time. Neck is supple Lungs are clear Regular rate and rhythm Abdomen is soft, minimal bloating and distention, and the only tenderness she has is in the midline wound. But there is no rebound or guarding. I am not removing the dressing. But surgery describes the wound is clean. What I can see of the skin around the dressing is without redness, heat, or induration. There are bowel sounds. Extremities without edema Laboratory: Chemistries are normal except for low anion gap of 5. Creatinine is 0.4. Glucose is 87, 74, 72. Phosphorus slightly low at 1.8 and it was supplemented. Hematology has a white cell count that is now normal. On the she was 12.5, on the ninth she was 15.7. Today 7.7. Hemoglobin and hematocrit are normal. Platelets are normal. Urine culture from May 14 had E. coli. Abdominal wound specimen culture was negative for growth Assessment/plan: 1. Status post exploratory laparotomy May 16 for SBO. Today's postop day # 2 with good postoperative progression to normal bowel sounds today. No flatus. NG is coming out. Clears are being started.I encouraged her to get out of bed. I will transfer to [facility] status. 2. Postoperative wide-complex tachycardia/afib with RVR Suspected to be A-fib. She has responded and is now sinus rhythm with rate controlled this morning. I have stopped the diltiazem drip.I will transfer her to MedSurg status. I will continue telemetry. Stop the ICU electrolyte protocol. Encouraged her to ambulate. DVT prophylaxis is SCDs. I will start her on p.o. metoprolol long-acting twice a day and see how she does over the next 24 hours. She should also be on anticoagulation. I will ask general surgery tomorrow to see when I can start that. She was already seen by cardiology before a recent cataract surgery. She will be asked to follow-up with that same applied computer science professor.Echocardiogram was done here yesterday. Overall left ventricular systolic function is normal with an EF of 55%. Right ventricle is normal. Left atrium index is normal and she only has mild right atrial enlargement. 3. Reactive leukocytosis. No bowel perforation. No spillage of stool into the abdominal wall. No UTI. No pneumonia. Blood cultures negative. 4. Hypertension. Now that she is taking p.o., have started her on a beta- buzz. She usually takes losartan at home. I will not resume both of them. Only the beta-buzz for this time. She is 129/67 and I will make her hypotensive with both medication. 5. E. coli UTI. Completed treatment with Rocephin. Problems that have been addressed include: Elevated calcium that may have mild hyperparathyroidism to follow-up in the outpatient setting Hypokalemia that is resolved Psoriasis that is treated with Otezla and that is continued
[2024-05-19 04:23] LABS: CALCIUM, IONIZED 1.19 mmol/L (1.15-1.33); VBG PH 7.464 (7.31-7.41)
[2024-05-19 08:11] VITALS: BP 159/85; TEMP 98; O2SAT 95
--- NOTE | 2024-05-19 08:12 | PROVIDER PROGRESS NOTE ---
Progress Note Progress Note Progress Note: General Surgery Progress Note S: Patient feels good. Passed a bowel motion this morning. Tolerated full liquids last night without nausea or emesis. Minimal abdominal pain O: VSS, afeb; Abdomen is soft and non-tender. Mild distension persists. Midline dressing dry. Phos 2.7; Glu 72 A: Bowel function has returned. No wound issues P: Advance diet as tolerated; Possible discharge later today if tolerates diet advancement Bigg Mar MD, FACS General Surgery Service
[2024-05-19] MEDS ORDERED: METOPROLOL 5 MG/5 ML VIAL IVP PRN (09:31)
--- NOTE | 2024-05-19 15:12 | Discharge Summary ---
"Discharge Summary Admit Date: 05/14/24 Discharge Date: 05/19/24 Discharging Provider: Alda Willis MD Primary Care Provider: MARYBETH Salazar Code Status: Attempt Resuscitation DIAGNOSES Discharge Diagnoses with Status of Each Condition: 1. Small bowel obstruction secondary to adhesions 2. Atrial fibrillation with RVR, new onset, resolved. 3. Reactive leukocytosis 4. Hypertension 5. E. coli UTI resolved 6. Hypercalcemia, needs follow-up PTH. Or sestamibi scan. Her intact PTH level was 93 which is elevated. Normal is between 12 and 88. 7. Hypokalemia resolved 8. Psoriasis, present on admission, chronic HPI History of Present Illness: 79-year-old female with a history of hypertension who presented with 2 episodes of projectile emesis. She states that yesterday, she was at home, and she had a large bowel movement. After this, she had 1 episode of emesis without any blood or bile in it. She then had another episode a few hours later. She states that this was unlike any other episodes of emesis in terms of its urgency and its volume. She also had some abdominal pain in her right side, which she states is now completely resolved. She described as a sharp pain. She then went to the urgent care, where they diagnosed her with a UTI. She was advised to return to the emergency room if her symptoms got worse. Because she was having some worsening abdominal pain, nausea, she did return to the emergency room. Once here, a CAT scan of her abdomen was done which did show multiple fluid-filled dilated loops of small bowel, concerning for obstruction. No definite transition point was identified. An NG tube was placedthis is providing her with some discomfort. She has had no more episodes of nausea or vomiting. Surgery is following. CONSULTS | PROCEDURES Consultations: General Surgery, Dr. Mar Procedures: 1. Exploratory laparotomy, lysis of adhesions on May [address] in May 14 with multiple fluid-filled dilated loops of bowel measuring up to 3.6 cm. No definitive transition point. No extraluminal gas to suggest perforation. 3. Chest x-ray without acute cardiopulmonary process. NG tube in place and positioned appropriately 4. Small bowel challenge with Gastrografin May 15, prior to surgery, with continued small bowel obstruction. Two Follow-up Gastrografin films on May 16 showed continued retention of Gastrografin. Complete obstruction documented. As such decision to go to the OR. 5. Echocardiogram done for new onset atrial fibrillation. Overall left ventricular systolic function normal with an ejection fraction of 55 to 60%. Right ventricle normal in size and function. No concerning cardiac valve disease. RVSP at rest 27 mmHg. HOSPITAL COURSE Hospital Course: 1. Status post exploratory laparotomy May 16 for SBO. Today's postop day #3 with good postoperative progression to normal bowel sounds on POD#2 and flatus POD#3. [facility] status on postop day #2. When she was able to have bowel sounds, we clamped the NG. There was no residual. We then pulled the NG and she had flatus on postop day 3. We advanced her quickly to a regular diet and she tolerated 2 meals without bloating, pain, distention. She was felt stable to go home. She is instructed to follow-up with general surgery next week to get the brunilda removed. To keep the wound clean and dry. She can take a shower but no bathing. She feels that she does not need any pain medicine has declined me prescribing any. I am asking to be on a low residue diet for the next week. I am also asking her not to lift anything heavier than 10 to 15 pounds for the next [address] Pna was not able to see her prior to discharge, but he did see her this morning. He will be asking his office to give her a call so that her brunilda can be removed in the next week. 2. Postoperative wide-complex tachycardia that was diagnosed as afib with RVR She was started on a diltiazem drip and transferred to the ICU. She responded to that and is now sinus rhythm with rate controlled. I stopped the diltiazem drip. I Started her on p.o. metoprolol long-acting twice a day Wash how she did over 24 hours. At discharge I am discharging her on only 1 dose a day. She is on losartan on her home medication list but I did not resume losartan while she was in the hospital. She should also be on anticoagulation. That was started in the form of Eliquis 2.5 mg p.o. twice daily. She is 79 years old and as such 2.5 mg was chosen as opposed to 5 mg. She was already seen by cardiology before a recent cataract surgery. She will be asked to follow-up with that same agricultural mechanic. Echocardiogram was done and showed overall left ventricular systolic function is normal with an EF of 55%. Right ventricle is normal. Left atrium index is normal and she only has mild right atrial enlargement. 3. Reactive leukocytosis. Resolved. No bowel perforation. No spillage of stool into the abdominal wall. No UTI. No pneumonia. Blood cultures negative. 4. Hypertension. She usually takes losartan at home. Not resume both losartan and metoprolol at discharge. Only the beta-buzz for this time. Blood pressure was in the 120s over 60s until the day of discharge when she was 159/85. I am asking her to resume her losartan the next few days but would like her primary care provider to check her blood pressure on both these medications. 5. E. coli UTI. Completed treatment with Rocephin. 6. Elevated calcium level and mild elevation of PTH. She will need follow-up in the outpatient setting with either a repeat calcium, or straight to a sestamibi subtraction scan. It should be noted that our general surgeons, specifically Dr. Marion, do handle parathyroid tumors if she were to need surgery. During her stay she did have hypokalemia that is resolved after supplementation Psoriasis was treated with Otezla and that was continued from the home setting. Greater than 30 minutes was spent coordinating discharge. ALLERGIES Allergies Allergy/AdvReac Type Severity Reaction Status Date / Time lisinopril AdvReac Unknown Verified 05/14/24 18:57 MEDICATIONS Ambulatory Orders Medication Instructions Recorded Confirmed Flaxseed Oil 1,400 mg PO DAILY 07/11/15 05/15/24 Ocuvite 1 cap PO DAILY 07/11/15 05/15/24 Red Rice Yeast 2,400 mg PO DAILY 07/11/15 05/15/24 ascorbic acid (vitamin C) 1,000 mg 500 mg PO DAILY 07/11/15 05/15/24 chewable tablet calcium 333 mg 1 ea PO DAILY 07/11/15 05/15/24 (carbonate)-magnesium 133 mg-zinc 5 mg (sulfate) tablet cholecalciferol (vitamin D3) 25 1,000 unit PO DAILY 07/11/15 05/15/24 mcg (1,000 unit) capsule (Vitamin D3) glucosamine 467 mg-chondroitin msm 1 ea PO DAILY 07/11/15 05/15/24 no.6 438 mg-manganes 0.7 mg capsule omeprazole 20 mg capsule,delayed 20 mg PO DAILY 07/11/15 05/15/24 release (Prilosec) apremilast 30 mg tablet (Otezla) 30 mg ORAL BID 08/07/23 05/15/24 losartan 100 mg tablet 100 mg PO DAILY 05/15/24 05/15/24 apixaban 2.5 mg tablet 2.5 mg PO BID #180 tabs 05/19/24 metoprolol succinate 25 mg 25 mg PO DAILY #30 tabs 05/19/24 tablet,extended release 24 hr metoprolol succinate 25 mg 25 mg PO QAM #30 tabs 05/19/24 tablet,extended release 24 hr PHYSICAL EXAM AT DISCHARGE General Appearance: positive No acute distress, Alert and Other (79-year-old female looks younger than stated age. Well-groomed, well-nourished.) Eyes Bilateral: positive PERRL and EOMI ENT: positive No signs of dehydration Neck: positive No JVD; negative Stiff neck Respiratory: positive No respiratory distress and Breath sounds nml; negative Wheezes, Rales or Rhonchi Cardiovascular: positive Regular rate & rhythm, No murmur and No gallop Abdomen: positive No organomegaly, Nml bowel sounds and Tenderness (Over the incision site which was clean, closed. No drainage or redness. Recovered with bandage.) Skin: positive Warm and Dry Extremities: positive Non-tender, Full ROM and Nml appearance Neurologic/Psychiatric: positive Oriented x3, CN's nml (2-12) and Motor nml LABS 05/18/24 06:38 05/18/24 06:38 TIME SPENT Time Spent in Discharge (Minutes): 35 Discharge Plan Discharge Patient Disposition: 01 Home, Self Care Condition: Stable Medically Cleared Date:: 05/19/24 Prescriptions: New metoprolol succinate 25 mg Tablet Extended Release 24 Hr 25 mg PO QAM Qty: 30 0RF apixaban 2.5 mg tablet 2.5 mg PO BID Qty: 180 3RF metoprolol succinate 25 mg tablet extended release 24 hr 25 mg PO DAILY Qty: 30 0RF Continued omeprazole [Prilosec] 20 MG capsule,delayed release(DR/EC) 20 mg PO DAILY ascorbic acid (vitamin C) 1,000 MG tablet,chewable 500 mg PO DAILY cholecalciferol (vitamin D3) [Vitamin D3] 1,000 UNIT capsule 1,000 unit PO DAILY calcium carb-mag ox-zinc sulf 1 EACH tablet 1 ea PO DAILY glucosam-chondr msm6-manganese 1 EACH capsule 1 ea PO DAILY Flaxseed Oil 1,400 mg PO DAILY Ocuvite 1 cap PO DAILY Red Rice Yeast 2,400 mg PO DAILY Otezla 30 MG tablet 30 mg ORAL BID losartan 100 mg tablet 100 mg PO DAILY Rx Instructions: Take 1 tablet by mouth once a day Activity Restrictions: as per general surgery Diet: Regular Health Concerns: You presented to the hospital on May 14, 3 days after your birthday, with sudden onset of abdominal pain, nausea and vomiting. First you started having nausea and vomiting and went to urgent care clinic and they diagnosed you with a UTI. They asked you to come back if you got worse. You became worse with increasing abdominal pain and distention and this time went to the emergency room. X-ray imaging showed you to have a small bowel obstruction. And we called general surgery to see you. He decided to operate on you in May 16. He cut through the adhesions that you have developed from previous surgery. In the postoperative timeframe, you slowly got better. Unfortunately, you developed a temporary irregular heart rate. It is called atrial fibrillation. We were able to slow down the heart rate with medications. However you will also need to be on a blood thinner temporarily. The irregular heart rate can cause small clots to form in your heart chambers and then cause stroke. So the blood thinner prevents that. Your primary care provider will need to look at your new medications for all of this. Because the metoprolol is meant to slow down your heart rate but can also lower your blood pressure, I have not resumed your usual home medicine of losartan. You can resume that in the next few days. But make sure that you check your blood pressure with your primary care provider. We were able to pull your NG tube. You were able to eat clear liquids. On the day of discharge you had a bowel movement and we began feeding you. You tolerated your diet well and were able to go home. Plan of Treatment: 1. Please see your primary care provider in follow-up in the next 2 to 3 weeks. This is for continuity of care. She will need to review the use of Metoprolol and Eliquis with you. And she will need to look at your blood pressure to see if your losartan can be resumed. 2. Please see general surgery for Follow-up in the next week. Although Dr. Mar operated on you, you can be seen by any surgeon in his office. With any questions about the wound, or how to care for the wound, please call that office. 3. Please eat a low residue diet for the next week or 2. Do not eat large meals. 4. Keep your wound clean and dry. You can take a shower but do not take a bath. 5. Do not lift anything heavier than 10 to 15 pounds for the next 6 weeks. Print Language: French Patient Instructions: Surgery Anesthesia After Follow-up Care: Bigg Mar MD [Provider Admit Priv/Credential] - Laura Harris ARNP [Primary Care Provider] -"
== END 2024-05-19 15:52 | disposition home or self-care (01) | DRG 336 ==
LOC: ED 18:45 → ICU 21:53
PROVIDERS: ADMIT Internal Medicine; ATTEND Internal Medicine
DX: B96.20 Unspecified Escherichia coli [E. coli] as the cause of diseases classified elsewhere; I48.91 Unspecified atrial fibrillation; I10 Essential (primary) hypertension; I44.7 Left bundle-branch block, unspecified; Z79.899 Other long term (current) drug therapy; N39.0 Urinary tract infection, site not specified; L40.9 Psoriasis, unspecified; E21.3 Hyperparathyroidism, unspecified; K56.609 Unspecified intestinal obstruction, unspecified as to partial versus complete obstruction; Z79.01 Long term (current) use of anticoagulants; E83.52 Hypercalcemia; E87.6 Hypokalemia; K91.32 Postprocedural complete intestinal obstruction